=== PATIENT | male | born 1955 ===

== ENCOUNTER 2018-01-02 16:52 | Observation (INO) | payer BC ==
[2018-01-02 16:53] VITALS: BMI 31.5
[2018-01-02] MEDS ORDERED: Sodium Chloride 0.9% 1,000 ML IV ONE (17:19)
[2018-01-02] MEDS ORDERED: Aspirin 325 mg EC Tablets PO STA (17:19)
--- NOTE | 2018-01-02 17:19 | C.PDOC ---
History Of Present Illness <Noa Collins - Last Filed: 01/02/18 19:04> <Silvestre Ariza - Last Filed: 01/02/18 20:23> 62 years old male with Hx of seizure disorder and HTN presents to ED for complaints of non-radiating mid sternal chest pain associated with mild SOB that began around noon today. Patient describes symptoms as "something sitting on chest" and worsens with deep aspiration. Patient also reports he did not take any medication for his pain. Denies numbness, weakness, palpitation, dizziness, or nausea. (Noa Collins) History Per: Patient History/Exam Limitations: no limitations Onset/Duration Of Symptoms: Hrs Current Symptoms Are (Timing): Still Present Modifying Factors: None Exacerbating Factors: Deep Breathing Alleviating Factors: None Recent travel outside of the [place]: No <Noa Collins - Last Filed: 01/02/18 19:04> <Silvestre Ariza - Last Filed: 01/02/18 20:23> Time Seen by Provider: 01/02/18 17:08 Chief Complaint (Nursing): Chest Pain Past Medical History Reviewed: Historical Data, Nursing Documentation, Vital Signs - Medical History PMH: HTN, Hyperlipidemia, Seizures Denies: Chronic Kidney Disease Family History: States: Unknown Family Hx - Social History Hx Tobacco Use: No Hx Alcohol Use: Yes Hx Substance Use: No - Immunization History Hx Tetanus Toxoid Vaccination: No Hx Influenza Vaccination: No Hx Pneumococcal Vaccination: No <Noa Collins - Last Filed: 01/02/18 19:04> Vital Signs: Last Vital Signs Temp 98.2 F 01/02/18 19:22 Pulse 68 01/02/18 19:22 Resp 20 01/02/18 19:22 BP 129/85 01/02/18 19:22 Pulse Ox 96 01/02/18 19:22 Review Of Systems Constitutional: Negative for: Fever, Chills Cardiovascular: Positive for: Chest Pain (Mid sternal ). Negative for: Palpitations Respiratory: Positive for: Shortness of Breath (Mild). Negative for: Cough Gastrointestinal: Negative for: Nausea, Vomiting, Diarrhea Skin: Negative for: Rash Neurological: Negative for: Weakness, Numbness, Dizziness <Noa Collins - Last Filed: 01/02/18 19:04> Physical Exam - Physical Exam Appears: Non-toxic, No Acute Distress Skin: Warm, Dry Head: Atraumatic, Normacephalic Eye(s): bilateral: Normal Inspection Oral Mucosa: Moist Neck: Normal ROM, Supple Chest: Symmetrical, No Tenderness Cardiovascular: Rhythm Regular, No Murmur, No Other (Gallop) Respiratory: Normal Breath Sounds (Clear to auscultation bilaterally ), No Decreased Breath Sounds, No Rales, No Rhonchi, No Wheezing Gastrointestinal/Abdominal: Bowel Sounds (Active ), Soft, No Tenderness, No Distention, No Guarding, No Rebound Extremity: Normal ROM, No Tenderness, No Pedal Edema Extremity: Bilateral: Atraumatic, Normal Color And Temperature, Normal ROM Pulses: Left Dorsalis Pedis: Normal, Right Dorsalis Pedis: Normal Neurological/Psych: Oriented x3, Normal Speech, Normal Motor, Normal Sensation, Normal Reflexes, Other (No focal deficits ) Gait: Steady <Noa Collins - Last Filed: 01/02/18 19:04> ED Course And Treatment - Laboratory Results Result Diagrams: 01/02/18 17:29 01/02/18 17:29 Lab Interpretation: No Acute Changes ECG: Interpreted By Me, Viewed By Me ECG Rhythm: Sinus Rhythm ECG Interpretation: No Acute Changes, No Changes From Prior (11/12/17) Rate From EC O2 Sat by Pulse Oximetry: 98 (RA) Pulse Ox Interpretation: Normal - Radiology CXR: Interpreted by Me, Viewed By Me CXR Interpretation: Yes: No Acute Disease, Heart Size. No: Infiltrates, COPD <Noa Collins - Last Filed: 01/02/18 19:04> - Laboratory Results Result Diagrams: 01/02/18 17:29 01/02/18 17:29 <Silvestre Ariza - Last Filed: 01/02/18 20:23> Medical Decision Making <Noa Collins - Last Filed: 01/02/18 19:04> <Silvestre Ariza - Last Filed: 01/02/18 20:23> Medical Decision Making: Impression: chest pain Plan: Patient assessed and examined. EKG obtained and reviewed. 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 Orders placed for labs including CE and CXR. ASA given. Oxygen given via nasal cannula. Ordered blood work and urinalysis. Progress: EKG shows no ST elevation. CXR shows no active disease. Labs reviewed shows negative cardiac enzymes, and CBC WNL. Patient remained afebrile alert and oriented with stable vital signs. Based on clinical presentation cannot exclude ACS. Recommend obs-tele admission. Contact PMD Dr Mccoy who states he does not admit at this hospital, he is aware patient in ED. Will call medicine marine extension agent. Page medicine marine extension agent DR Hairston [phone] with no call back (Noa Collins) Disposition - Disposition Disposition Time: 19:04 - POA Present On Arrival: None <Noa Collins - Last Filed: 01/02/18 19:04> Discussed With Dr.: Estrella Hairston Comment: accepted the pt on his service and took over the care at 8:20PM Doctor Will See Patient In The: ED - POA Present On Arrival: Poor Glycemic Control <Silvestre Ariza - Last Filed: 01/02/18 20:23> - Disposition Disposition: HOSPITALIZED Condition: FAIR Instructions: Chest Pain Forms: Corso12 (Gambian) - Clinical Impression Clinical Impression: Chest pain - PA / APPLIER / Resident Statement MD/DO has reviewed & agrees with the documentation as recorded. - Scribe Statement The provider has reviewed the documentation as recorded by the Scribe <Noa Collins - Last Filed: 01/02/18 19:04> <Silvestre Ariza - Last Filed: 01/02/18 20:23> - Scribe Statement Sepideh Urbina All medical record entries made by the Scribe were at my direction and personally dictated by me. I have reviewed the chart and agree that the record accurately reflects my personal performance of the history, physical exam, medical decision making, and the department course for this patient. I have also personally directed, reviewed, and agree with the discharge instructions and disposition. (Noa Collins) Physician Patient Turnover Patient Signed Over To: Silvestre Ariza Handoff Comments: pending call back from arlette for admit obs-tele chest pain <Noa Collins - Last Filed: 01/02/18 19:04> Decision To Admit <Noa Collins - Last Filed: 01/02/18 19:04> - Pt Status Changed To: Hospital Disposition Of: Observation - . Bed Request Type: Telemetry Admitting Physician: Estrella Hairston <Silvestre Ariza - Last Filed: 01/02/18 20:23> - . Patient Diagnosis: Chest pain
[2018-01-02 17:36] LABS: BASO # 0.1 K/uL (0.0-0.2); BASO % 0.7 % (0.0-2.0); EOS # 0.1 K/uL (0.0-0.7); EOS % 0.8 % (0.0-4.0); HEMOGLOBIN 15.5 g/dL (12.0-18.0); LYMPH # 1.1 K/uL (1.0-4.3); MEAN CELL VOLUME 91.2 fL (80.0-94.0); MEAN CORPUSCULAR HEMOGLOBIN 31.8 pg (27.0-31.0); MEAN CORPUSCULAR HGB CONC 34.8 g/dL (33.0-37.0); MEAN PLATELET VOLUME 8.8 fL (7.2-11.7); MONO # 0.7 K/uL (0.0-0.8); MONO % 9.7 % (0.0-10.0); NEUT # 5.6 K/uL (1.8-7.0); NEUT % 73.8 % (50.0-75.0); RBC 4.86 Mil/uL (4.40-5.90); RED CELL DISTRIBUTION WIDTH 13.4 % (11.5-14.5); WHITE BLOOD COUNT 7.6 K/uL (4.8-10.8)
[2018-01-02 17:43] LABS: INR 1.1
[2018-01-02 17:49] LABS: ALB/GLOB RATIO 1.2 (1.0-2.1); ALBUMIN 4.4 g/dL (3.5-5.0); ALT/SGPT 91 U/L (21-72); AST/SGOT 100 U/L (17-59); BLOOD UREA NITROGEN 14 mg/dL (9-20); CALCIUM 9.5 mg/dl (8.6-10.4); GFR AFRICAN-AMERICAN > 60; GFR NON-AFRICAN AMERICAN > 60; HDL CHOLESTEROL 55 mg/dL (30-70)
[2018-01-02 17:59] LABS: B-TYPE NATRIURETIC PEPTIDE 96.4 pg/mL (0-900)
[2018-01-02 18:00] LABS: LDL CHOLESTEROL 91 mg/dL (0-129)
[2018-01-02] MEDS ORDERED: Sodium Chloride 0.9% 1,000 ML ONE (18:02)
--- NOTE | 2018-01-02 18:43 | RAD ---
HISTORY: chest pain COMPARISON: Chest x-ray performed 11/12/17 TECHNIQUE: Chest PA and lateral FINDINGS: LUNGS: No focal consolidation. Please note that chest x-ray has limited sensitivity for the detection of pulmonary masses. PLEURA: No significant pleural effusion identified. No definite pneumothorax . CARDIOVASCULAR: Heart size appears within normal limits. OSSEOUS STRUCTURES: Degenerative changes. VISUALIZED UPPER ABDOMEN: Eventration of the right hemidiaphragm. OTHER FINDINGS: Surgical clips noted at the level the right lung base/right upper quadrant. IMPRESSION: No focal consolidation, significant pleural effusion, or definite pneumothorax identified.
[2018-01-02 20:01] LABS: SQUAMOUS EPITHIAL 1 /hpf (0-5); URINE BACTERIA RARE (<OCC); URINE BILIRUBIN NEGATIVE (NEGATIVE); URINE BLOOD 1+ (NEGATIVE); URINE CLARITY Hazy (Clear); URINE COLOR Amber (YELLOW); URINE GLUCOSE (UA) NORMAL (Normal); URINE LEUKOCYTE ESTERASE NEG Leu/uL (Negative); URINE PROTEIN 2+ mg/dL (NEGATIVE)
[2018-01-02] MEDS ORDERED: Enoxaparin 40 mg Syringe SC STA (20:18)
--- NOTE | 2018-01-02 20:35 | CP.PCM.HP ---
History of Present Illness - History of Present Illness History of Present Illness: COMPREHENSIVE HISTORY & PHYSICAL EXAM HPI Patient is admitted from [facility] emergency room for atypical chest pain. Patient started experiencing retrosternal chest discomfort with no radiation diaphoresis the last 2 days his increase in intensity and severity. In the emergency room 1st set of cardiac enzymes is negative EKG shows no specific ST changes. Patient has a history of hypertension and history of seizure disorder which was admitted beginning of this year and was on Lamictal and Keppra patient also has a history of hypercholesteremia PAST HIST. Abdominal surgery in the past PERSONAL HIST: Smoking. N Alcohol. N Allergy N Travel_- . FAMILY HIST : ROS : Constitutional: Negative for weight change, chills, night sweats, fatigue and usage of assist device. Eyes: Negative for redness, swelling, itching, discharge, vision changes, blurry vision, double vision, glaucoma, cataracts, Ears: Negative for hearing loss, ringing, , tinnitus, vertigo Nose: Negative for rhinorrhea, stuffiness, sniffing, itching, postnasal drip, discoloration, nasal congestion and epistaxis. Throat: Negative for throat clearing, sore throat, hoarseness, difficulty swallowing and difficulty speaking. Respiratory: Negative for cough, chest tightness, sputum or phlegm, chronic cough, hemoptysis, wheezing, snoring at night, pleuritic chest pain and daytime somnolence. Cardiovascular: Negative for, palpitations, orthopnea, PND, Edema of legs, leg cramps, angina, claudication, , irregular heartbeat, Neurology: Negative for irritability, muscle weakness, numbness and tingling, seizures, tremors, migraines, slurred speech, syncope, memory loss, mood changes , recurrent headaches Gastrointestinal: Negative for difficulty swallowing, diarrhea, constipation, black stools, rectal bleeding, nausea, flatulence, reflux, poor appetite, changes in bowel habits, abdominal pain Genitourinary: Negative for frequent urination, hematuria, discharge, incontinence, urinary retention, frequent UTI, Psychiatric: Negative for depression, anxiety/panic, suicidal tendencies, Musculoskeletal: Negative for swollen joints, back pain, , neck pain, morning stiffness of joints, . Skin: Negative for rash, ulcers, itching, dry skin and pigmented lesions. P/E: Constitutional: Appears stated age and in no apparent distress. Head: Normocephalic. Ears: External ear canals patent without inflammation. Tympanic membranes intact with normal light reflex and landmark. Eyes: Pupils are central, bilaterally equal, symmetrical and reacts to light with normal movements and no icterus or pallor. Nose: External nares are patent. Mucosa is pink Mouth-Throat: Good general appearance and condition. No post-pharyngeal/oropharyngeal erythema and tonsillar hypertrophy. Good dental hygiene. Neck-Lymphatic: Neck is supple with normal ROM, no thyromegaly, lymph nodes or masses. JVD is normal with no carotid bruit. Lungs: Clear to percussion and auscultation with bilateral normal air entry. Cardiovascular: S1 and S2 are normal with no murmurs, gallops and rub. GI Exam: No hepatomegaly. Abdomen is soft and non-tender. No Organomegaly , masses or hernias are evident and bowel sounds are normal and active. Neurology: Higher function and all cranial nerves intact, with no gross motor or sensory deficit. Superficial and deep reflexes are normal with downwards planters. No cerebellar deficit with normal gait. Musculoskeletal: No tender spots with normal curvature of the spine with no swelling or restricted ROM of the small and large joints. Extremities: Homans sign absent. Intact pulses with no pitting edema, calf tenderness or skin color changes. Skin: No rash, eruptions or abnormal skin pigmentation LAB/RADIOLOGY: ASSESMENT : Rule out acute coronary artery disease, #2 hypertension and seizure disorder. Cardiac workup. Present on Admission - Present on Admission Any Indicators Present on Admission: No Past Patient History - Past Medical History & Family History Past Medical History?: Yes - Past Social History Smoking Status: Never Smoked - CARDIAC Hx Hypertension: Yes - PULMONARY Hx Respiratory Disorders: No - NEUROLOGICAL Hx Seizures: Yes - HEENT Hx HEENT Problems: No - RENAL Hx Chronic Kidney Disease: No - ENDOCRINE/METABOLIC Hx Endocrine Disorders: No - HEMATOLOGICAL/ONCOLOGICAL Hx Blood Disorders: No Hx Cancer: Yes (colon cancer with liver metastasis) - INTEGUMENTARY Hx Dermatological Problems: No - MUSCULOSKELETAL/RHEUMATOLOGICAL Hx Falls: Yes (hx falls due to seizures) - GASTROINTESTINAL Hx Gastrointestinal Disorders: No Hx Bowel Surgery: Yes (sigmoid colectomy) - GENITOURINARY/GYNECOLOGICAL Hx Genitourinary Disorders: No - PSYCHIATRIC Hx Substance Use: No - SURGICAL HISTORY Hx Surgeries: Yes - ANESTHESIA Hx Anesthesia: Yes Meds Allergies/Adverse Reactions: Allergies Allergy/AdvReac Type Severity Reaction Status Date / Time seafood Allergy SHORTNESS Uncoded 01/02/18 16:59 OF BREATH Results - Vital Signs Recent Vital Signs: Last Vital Signs Temp 98.2 F 01/02/18 19:22 Pulse 68 01/02/18 19:22 Resp 20 01/02/18 19:22 BP 129/85 01/02/18 19:22 Pulse Ox 96 01/02/18 19:22 - Labs Result Diagrams: 01/02/18 17:29 01/02/18 17:29 Labs: Laboratory Results - last 24 hr 01/02/18 01/02/18 01/02/18 17:29 17:29 17:29 WBC 7.6 RBC 4.86 Hgb 15.5 Hct 44.4 MCV 91.2 MCH 31.8 H MCHC 34.8 RDW 13.4 Plt Count 190 MPV 8.8 Neut % (Auto) 73.8 Lymph % (Auto) 15.0 L [place] % (Auto) 9.7 Eos % (Auto) 0.8 Baso % (Auto) 0.7 Neut # (Auto) 5.6 Lymph # (Auto) 1.1 [place] # (Auto) 0.7 Eos # (Auto) 0.1 Baso # (Auto) 0.1 PT 12.0 INR 1.1 APTT 30 Sodium 142 Potassium 3.8 Chloride 103 Carbon Dioxide 29 Anion Gap 14 BUN 14 Creatinine 0.8 Est GFR ( Amer) > 60 Est GFR (Non-Af Amer) > 60 Random Glucose 117 H Calcium 9.5 Total Bilirubin 0.8 AST 100 H D ALT 91 H D Alkaline Phosphatase 83 Total Creatine Kinase 285 H CK-MB (Mass) 2.80 Troponin I < 0.0120 NT-Pro-B Natriuret Pep 96.4 Total Protein 8.2 Albumin 4.4 Globulin 3.8 Albumin/Globulin Ratio 1.2 Triglycerides 148 Cholesterol 175 LDL Cholesterol Direct 91 HDL Cholesterol 55 Urine Color Urine Clarity Urine pH Ur Specific [place] Urine Protein Urine Glucose (UA) Urine Ketones Urine Blood Urine Nitrate Urine Bilirubin Urine Urobilinogen Ur Leukocyte Esterase Urine WBC (Auto) Urine RBC (Auto) Ur Squamous Epith Cells Ur Transition Epith Cell Urine Bacteria Hyaline Casts 01/02/18 19:47 WBC RBC Hgb Hct MCV MCH MCHC RDW Plt Count MPV Neut % (Auto) Lymph % (Auto) [place] % (Auto) Eos % (Auto) Baso % (Auto) Neut # (Auto) Lymph # (Auto) [place] # (Auto) Eos # (Auto) Baso # (Auto) PT INR APTT Sodium Potassium Chloride Carbon Dioxide Anion Gap BUN Creatinine Est GFR ( Amer) Est GFR (Non-Af Amer) Random Glucose Calcium Total Bilirubin AST ALT Alkaline Phosphatase Total Creatine Kinase CK-MB (Mass) Troponin I NT-Pro-B Natriuret Pep Total Protein Albumin Globulin Albumin/Globulin Ratio Triglycerides Cholesterol LDL Cholesterol Direct HDL Cholesterol Urine Color [place] Urine Clarity Hazy Urine pH 5.0 Ur Specific [place] 1.029 Urine Protein 2+ H Urine Glucose (UA) Normal Urine Ketones Negative Urine Blood 1+ H Urine Nitrate Negative Urine Bilirubin Negative Urine Urobilinogen 2.0 Ur Leukocyte Esterase Neg Urine WBC (Auto) 3 Urine RBC (Auto) 4 H Ur Squamous Epith Cells 1 Ur Transition Epith Cell < 1 Urine Bacteria Rare Hyaline Casts 6-10 H
[2018-01-02] MEDS ORDERED: Enoxaparin 100 mg Syringe ONE (21:07)
[2018-01-02] MEDS ORDERED: SIMVASTATIN 20 MG PO SCH (22:00)
[2018-01-03 02:35] LABS: CK-MB 2.29 ng/mL (0.0-3.38); TROPONIN I 0.015 ng/mL (0.00-0.120)
[2018-01-03 12:00] LABS: CK-MB 1.97 ng/mL (0.0-3.38); TROPONIN I 0.022 ng/mL (0.00-0.120)
--- NOTE | 2018-01-03 13:30 | CP.PCM.PN ---
Subjective - Date & Time of Evaluation Date of Evaluation: 01/03/18 Time of Evaluation: 13:30 - Subjective Subjective: CHIEF COMPLAINTS TODAY : No further chest pain. Remains in sinus bradycardia ROS. HEENT : N. Resp : No cough, wheezing ,pleuritic CP ,or hemoptysis Cardio : No anginal CP, PND, orthopnea, palpitation GI : No abd.pain, n/v ,diarrhea or GI bleeding . 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 Musculoskel : No joint swelling , Derm : No rash Psych : Normal affect. Ext : No swelling ,calf pain PE. Pt. is alert awake in no distress. V.S As noted in the chart Head ,ear nose,throat and eyes : Normal. Neck : Supple with normal carotids. Lungs: Clear air entry. Heart : S1 & S2 normal with S4. No murmur. Abd : Soft non tender with normal bowel sounds. Neuro : Moves all ext. with no localized deficit. Ext : No edema with intact pulses.Non tender calves Derm : No rashes or decubitus ulcer. LABS/RADIOLOGY: ASSESSMENT/PLAN : Cardiac workup in progress Objective - Vital Signs/Intake and Output Vital Signs (last 24 hours): Temp Pulse Resp BP Pulse Ox 97.6 F 48 L 20 157/88 H 99 01/03/18 07:00 01/03/18 12:00 01/03/18 07:00 01/03/18 07:00 01/03/18 12:14 Intake and Output: 01/03/18 01/03/18 11:59 23:59 Intake Total 10 Balance 10 - Medications Medications: Current Medications Amlodipine Besylate (Norvasc) 10 mg PO DAILY [facility] Last Admin: 01/03/18 09:23 Dose: 10 mg Aspirin (Aspirin) 325 mg PO DAILY [facility] Last Admin: 01/03/18 09:23 Dose: 325 mg Heparin Sodium (Porcine) (Heparin) 5,000 units SC BID [facility] Last Admin: 01/03/18 09:23 Dose: 5,000 units Lamotrigine (Lamictal) 150 mg PO DAILY [facility] Last Admin: 01/03/18 09:23 Dose: 150 mg Levetiracetam (Keppra) 1,500 mg PO BID [facility] Last Admin: 01/03/18 09:23 Dose: 1,500 mg Rosuvastatin Calcium (Crestor) 5 mg PO [facility] - Labs Labs: 01/02/18 17:29 01/02/18 17:29 PT 12.0 SECONDS (9.7-12.2) 01/02/18 17:29 INR 1.1 01/02/18 17:29 APTT 30 SECONDS (21-34) 01/02/18 17:29
--- NOTE | 2018-01-03 16:44 | CARD ---
APPROVED REPORT Date of service: 01/03/2018 EXAM: Two-dimensional and M-mode echocardiogram with Doppler and color Doppler. Other Information Quality : GoodRhythm : INDICATION Chest Pain RISK FACTORS Hypertension 2D DIMENSIONS IVSd1.1 (0.7-1.1cm)LVDd5.2 (3.9-5.9cm) PWd1.1 (0.7-1.1cm)LVDs3.4 (2.5-4.0cm) FS (%) 34.8 %LVEF (%)63.6 (>50%) M-Mode DIMENSIONS Left Atrium (MM)4.60 (2.5-4.0cm)IVSd1.16 (0.7-1.1cm) Aortic Root3.67 (2.2-3.7cm)LVDd5.94 (4.0-5.6cm) Aortic Cusp Exc.2.32 (1.5-2.0cm)PWd1.07 (0.7-1.1cm) FS (%) 43 %LVDs3.39 (2.0-3.8cm) LVEF (%)73 (>50%) Mitral Valve MV E Yjxpkucg85.6cm/sMV A Obqsampp50.9cm/sE/A ratio1.4 TDI E/Lateral E'0.0E/Medial E'0.0 Tricuspid Valve TR Peak [id number]/sTR Peak Gr.[id number] LEFT VENTRICLE The left ventricle is normal size. There is normal left ventricular wall thickness. The left ventricular function is normal. The left ventricular ejection fraction is within the normal range. About 55% No regional wall motion abnormalities noted. The left ventricular diastolic function is normal. No left ventricle thrombus noted on this study. There is no ventricular septal defect visualized. There is no left ventricular aneurysm. There is no mass noted in the left ventricle. RIGHT VENTRICLE The right ventricle is normal size. There is normal right ventricular wall thickness. The right ventricular systolic function is normal. ATRIA The left atrium size is normal. The right atrium size is normal. The interatrial septum is intact with no evidence for an atrial septal defect. AORTIC VALVE The aortic valve is normal in structure and function. No aortic regurgitation is present. There is no aortic valvular stenosis. There is no aortic valvular vegetation. MITRAL VALVE The mitral valve is normal in structure and function. There is no evidence of mitral valve prolapse. There is no mitral valve stenosis. There is trace mitral valve regurgitation noted. TRICUSPID VALVE The tricuspid valve is normal in structure and function. There is no tricuspid valve regurgitation noted. There is no tricuspid valve prolapse or vegetation. There is no tricuspid valve stenosis. PULMONIC VALVE The pulmonary valve is normal in structure and function. There is no pulmonic valvular regurgitation. There is no pulmonic valvular stenosis. GREAT VESSELS The aortic root is normal in size. The ascending aorta is normal in size. The pulmonary artery is normal. The IVC is normal in size and collapses >50% with inspiration. PERICARDIAL EFFUSION The pericardium appears normal. There is no pleural effusion. <Conclusion> Normal LV systolic function and wall motion. Normal Doppler.
--- NOTE | 2018-01-03 17:31 | CARD ---
APPROVED REPORT Date of service: 01/02/2018 EKG Measurement Heart [id number] VT [id number] <Conclusion> Normal sinus rhythm Voltage criteria for left ventricular hypertrophy Abnormal ECG
--- NOTE | 2018-01-04 00:17 | CARD ---
APPROVED REPORT Date of service: 01/03/2018 EKG Measurement Heart [id number] <Conclusion> Marked sinus bradycardia Voltage criteria for left ventricular hypertrophy Nonspecific ST abnormality Abnormal ECG
[2018-01-04 07:26] LABS: BASO # 0.1 K/uL (0.0-0.2); BASO % 1.1 % (0.0-2.0); EOS # 0.1 K/uL (0.0-0.7); EOS % 2.6 % (0.0-4.0); HEMOGLOBIN 15.2 g/dL (12.0-18.0); LYMPH # 1.5 K/uL (1.0-4.3); LYMPH % 27.3 % (20.0-40.0); MEAN CELL VOLUME 90.8 fL (80.0-94.0); MEAN CORPUSCULAR HEMOGLOBIN 31.4 pg (27.0-31.0); MEAN CORPUSCULAR HGB CONC 34.5 g/dL (33.0-37.0); MONO # 0.6 K/uL (0.0-0.8); MONO % 10.5 % (0.0-10.0); NEUT # 3.3 K/uL (1.8-7.0); NEUT % 58.5 % (50.0-75.0); NRBC % 0.1 % (0.0-2.0); RBC 4.86 Mil/uL (4.40-5.90); RED CELL DISTRIBUTION WIDTH 13.1 % (11.5-14.5); WHITE BLOOD COUNT 5.7 K/uL (4.8-10.8)
[2018-01-04 07:51] LABS: ALB/GLOB RATIO 1.1 (1.0-2.1); ALBUMIN 3.9 g/dL (3.5-5.0); ALT/SGPT 86 U/L (21-72); AST/SGOT 107 U/L (17-59); BLOOD UREA NITROGEN 14 mg/dL (9-20); CALCIUM 9.2 mg/dl (8.6-10.4); GFR AFRICAN-AMERICAN > 60; GFR NON-AFRICAN AMERICAN > 60
--- NOTE | 2018-01-04 14:27 | CP.PCM.PN ---
Subjective - Date & Time of Evaluation Date of Evaluation: 01/04/18 Time of Evaluation: 14:26 - Subjective Subjective: Patient is admitted from [facility] emergency room for atypical chest pain. Patient started experiencing retrosternal chest discomfort with no radiation diaphoresis the last 2 days his increase in intensity and severity. In the emergency room 1st set of cardiac enzymes is negative EKG shows no specific ST changes. Patient has a history of hypertension and history of seizure disorder which was admitted beginning of this year and was on Lamictal and Keppra patient also has a history of hypercholesteremia patient was monitored on telemetry bed. There was no any car3 sets of cardiac enzymes TNI were negative. Echocardiogram showed normal left ejection fraction with no wall motion normal. Patient currently has no chest pain on rest and on exertion. We will discharge the patient stress test outpatient. Objective - Vital Signs/Intake and Output Vital Signs (last 24 hours): Temp Pulse Resp BP Pulse Ox 97.9 F 44 L 18 163/93 H 98 01/04/18 07:00 01/04/18 07:56 01/04/18 07:00 01/04/18 07:00 01/04/18 07:00 Intake and Output: 01/04/18 01/04/18 11:59 23:59 Intake Total 200 Balance 200 - Medications Medications: Current Medications Amlodipine Besylate (Norvasc) 10 mg PO DAILY [facility] Last Admin: 01/04/18 09:30 Dose: 10 mg Aspirin (Aspirin) 325 mg PO DAILY [facility] Last Admin: 01/04/18 09:30 Dose: 325 mg Heparin Sodium (Porcine) (Heparin) 5,000 units SC BID [facility] Last Admin: 01/04/18 09:31 Dose: 5,000 units Lamotrigine (Lamictal) 150 mg PO DAILY [facility] Last Admin: 01/04/18 09:30 Dose: 150 mg Levetiracetam (Keppra) 1,500 mg PO BID [facility] Last Admin: 01/04/18 09:30 Dose: 1,500 mg Rosuvastatin Calcium (Crestor) 5 mg PO HS [facility] Last Admin: 01/03/18 21:47 Dose: 5 mg - Labs Labs: 01/04/18 07:14 01/04/18 07:14 PT 12.0 SECONDS (9.7-12.2) 01/02/18 17:29 INR 1.1 01/02/18 17:29 APTT 30 SECONDS (21-34) 01/02/18 17:29
--- NOTE | 2018-01-04 14:36 | CP.PCM.PN ---
Subjective - Date & Time of Evaluation Date of Evaluation: 01/04/18 Time of Evaluation: 14:36 - Subjective Subjective: PT CLEARED FOR D/C PER DR. TESFAYE. PT TO F/U WITH HIM IN THE OFFICE WITHIN 5-7 DAYS FOR A STRESS TEST. PT WILL ALSO F/U WITH HIS NEURO AND PMD. REFILL RX CALLED DIRECTLY TO PT'S PHARMACY. IT SHOULD BE NOTED THAT PT IS UNCLEAR WHAT MEDS HE'S ON---PT EDUCATED ON THE IMPORTANCE OF MEDICATION AWARENESS AND SELF- CARE. ADDRESSED ALL CONCERNS. NO FURTHER ORDERS. -FOLLOW UP WITH DR. TESFAYE IN THE OFFICE WITHIN 5-7 DAYS---CALL THE OFFICE FOR AN APPOINTMENT TIME. -DURING YOUR APPOINTMENT WITH DR. TESFAYE, HE WILL DISCUSS WITH YOU PLANS FOR A STRESS TEST. -CONTINUE YOUR HOME MEDICATIONS USUAL. -REFILL PRESCRIPTIONS SENT TO YOUR PHARMACY---PICK THEM UP TODAY OR TOMORROW: 1) AMLODIPINE 10 MG (FOR YOUR HEART AND BLOOD PRESSURE) ---TAKE 1 TABLET BY MOUTH ONCE A DAY 2) SIMVASTATIN 20 MG (FOR YOUR CHOLESTEROL AND HEART)---TAKE 1 TABLET BY MOUTH AT BEDSIDE 3) KEPPRA 500 MG ---TAKE 1 TABLET BY MOUTH TWICE A DAY -FOR FURTHER CONCERNS OR QUESTIONS, CONTACT DR. TESFAYE'S OFFICE. Objective - Vital Signs/Intake and Output Vital Signs (last 24 hours): Temp Pulse Resp BP Pulse Ox 97.9 F 44 L 18 163/93 H 98 01/04/18 07:00 01/04/18 07:56 01/04/18 07:00 01/04/18 07:00 01/04/18 07:00 Intake and Output: 01/04/18 01/04/18 06:59 18:59 Intake Total 200 Balance 200 - Medications Medications: Current Medications Amlodipine Besylate (Norvasc) 10 mg PO DAILY [facility] Last Admin: 01/04/18 09:30 Dose: 10 mg Aspirin (Aspirin) 325 mg PO DAILY [facility] Last Admin: 01/04/18 09:30 Dose: 325 mg Heparin Sodium (Porcine) (Heparin) 5,000 units SC BID [facility] Last Admin: 01/04/18 09:31 Dose: 5,000 units Lamotrigine (Lamictal) 150 mg PO DAILY [facility] Last Admin: 01/04/18 09:30 Dose: 150 mg Levetiracetam (Keppra) 1,500 mg PO BID [facility] Last Admin: 01/04/18 09:30 Dose: 1,500 mg Rosuvastatin Calcium (Crestor) 5 mg PO [facility] Last Admin: 01/03/18 21:47 Dose: 5 mg - Labs Labs: 01/04/18 07:14 01/04/18 07:14 PT 12.0 SECONDS (9.7-12.2) 01/02/18 17:29 INR 1.1 01/02/18 17:29 APTT 30 SECONDS (21-34) 01/02/18 17:29
[2018-01-04 15:53] VITALS: BP 172/91; PULSE 53; RESP 20; TEMP 98; O2SAT 99
== END 2018-01-04 16:42 | disposition home or self-care (01) ==
LOC: C.ER 16:52 → C.9E 20:17 → C.6T 22:28
PROVIDERS: ADMIT Internal Medicine Cardiovascular Disease; ATTEND Internal Medicine Cardiovascular Disease
DX: R07.89 Other chest pain (principal); E78.5 Hyperlipidemia, unspecified; G40.909 Epilepsy, unspecified, not intractable, without status epilepticus; I10 Essential (primary) hypertension; Z85.038 Personal history of other malignant neoplasm of large intestine; C78.7 Secondary malignant neoplasm of liver and intrahepatic bile duct
CPT/HCPCS: 36415; 71046; 80053; 80061; 81001; 83735; 83880; 84443; 84484; 85025; 85610; 85730; 93005; 93306; 94770; 96372; 99285; G0378; J1644; J1650; J7030

== ENCOUNTER 2018-01-29 17:16 | Inpatient (IN) | payer BC ==
[2018-01-29 17:23] VITALS: BMI 31.2
[2018-01-29 17:32] LABS: BASO # 0.1 K/uL (0.0-0.2); BASO % 0.9 % (0.0-2.0); EOS # 0.3 K/uL (0.0-0.7); EOS % 2.8 % (0.0-4.0); LYMPH % 35.4 % (20.0-40.0); MEAN CELL VOLUME 94.9 fL (80.0-94.0); MEAN CORPUSCULAR HEMOGLOBIN 31.2 pg (27.0-31.0); MEAN CORPUSCULAR HGB CONC 32.9 g/dL (33.0-37.0); MEAN PLATELET VOLUME 8.7 fL (7.2-11.7); MONO # 1.6 K/uL (0.0-0.8); MONO % 14.3 % (0.0-10.0); NEUT # 5.3 K/uL (1.8-7.0); NEUT % 46.6 % (50.0-75.0); NRBC % 0.1 % (0.0-2.0); RBC 5.44 Mil/uL (4.40-5.90); RED CELL DISTRIBUTION WIDTH 13.4 % (11.5-14.5); WHITE BLOOD COUNT 11.3 K/uL (4.8-10.8)
--- NOTE | 2018-01-29 17:38 | C.PDOC ---
History Of Present Illness 62 year old male, with PMHx of brain tumor resection in 2014, presents to the ED with a seizure shortly prior to arrival. As per EMS, patients family called because patient felt like he was going to have a seizure about 2 hours ago. This is the last time well. Upon arrival, patient was reportedly combative and witnessed to have a tonic-clonic seizure lasting 1 minute, in which Ativan was administered immediately. Patient became alert afterwards with no postictal period and appeared to have a leftward gaze. He was, however, responsive to questions and commands. At this point, EMS was able to move the patients right extremities but was unable to move left extremities. Patient is reportedly on Keppra due to brain tumor history, but did not take any today. Patient is not diagnosed with seizure disorder. Time Seen by Provider: 01/29/18 17:19 Chief Complaint (Nursing): Weakness/Neurological Deficit History Per: EMS History/Exam Limitations: other (HPI unobtainable due to clinical condition) Past Medical History Reviewed: Historical Data, Nursing Documentation, Vital Signs Vital Signs: Last Vital Signs Temp Pulse 90 01/29/18 18:19 Resp 18 01/29/18 18:19 BP 120/79 01/29/18 18:19 Pulse Ox 97 01/29/18 18:19 - Medical History PMH: HTN, Hypercholesterolemia, Seizures Family History: States: No Known Family Hx - Social History Hx Alcohol Use: Yes Hx Substance Use: No - Immunization History Hx Tetanus Toxoid Vaccination: No Review Of Systems Review Of Systems: ROS cannot be obtained secondary to pt's inabilty to answer questions. (due clinical condition) Physical Exam - Physical Exam Additional Physical Exam Comments: Constitutional: Sedated. Head: Normocephalic. Atraumatic. Eyes: Pinpoint pupils bilaterally. ENT: Moist mucous membranes. Neck: Supple. Cardiovascular: Tachycardic. Chest: No tenderness. Respiratory: Clear to auscultation bilaterally. GI: Healed RUQ scar. Back: No CVA tenderness. Musculoskeletal: No tenderness or swelling of extremities. Skin: No rash. Neurologic: Sedated. Not alert. ED Course And Treatment - Laboratory Results Result Diagrams: 01/29/18 17:26 01/29/18 17:26 ECG: Interpreted By Me, Viewed By Me Interpretation Of ECG: Normal sinus rhythym. No ST elevation. Rate From EC O2 Sat by Pulse Oximetry: 97 (RA) Pulse Ox Interpretation: Normal - CT Scan/US CT Head Other Rad Studies (CT/US): Read By Radiologist, Radiology Report Reviewed CT/US Interpretation: FINDINGS: HEMORRHAGE: No intracranial hemorrhage. BRAIN : No mass effect or edema. Mild atrophy. Chronic microvascular ischemic changes. Right parieto-occipital region encephalomalacia subjacent to craniotomy. VENTRICLES: Unremarkable. No hydrocephalus. CALVARIUM: Right parieto-occipital craniotomy. PARANASAL SINUSES: Bifrontal and left maxillary sinus mucosal thickening. MASTOID AIR CELLS: Unremarkable as visualized. No inflammatory changes. OTHER FINDINGS: None. IMPRESSION: No acute intracranial pathology. Right parietal occipital region encephalomalacia subjacent to prior craniotomy. Please note, there is limited assessment in the absence of intravenous contrast. Contrast-enhanced MRI would better evaluate for residual tumor in this region. NIHSS Stroke Scale 2 - Date/Time Evaluation Performed Date Performed: 01/29/18 Time Performed: 17:53 When Was NIHSS Performed: Baseline - How Severe is the Stroke Level of Consciousness: 0=Alert LOC to Questions: 0=Both comments correct LOC to commands: 0=Obeys both correctly Best Gaze: 0=Normal Visual: 0=No visual loss Facial: 0=Normal Motor Arm - Left: 0=No drift Motor Arm - Right: 0=No drift Motor Leg - Left: 0=No drift Motor Leg - Right: 0=No drift Limb Ataxia: 0=Absent Sensory: 0=Normal Best Language: 0=No aphasia Dysarthia: 0=Normal articulation Extinction & Inattention (Neglect): 0=Normal, no object Score: 0 Severity Of Stroke: 0 = No Stroke rTPA Inclusion/Exclusion - Refusal of Treatment Patient Refused Treatment: No - Inclusion Criteria for Altepase Patient is 18 years or Older: Yes The Clinical Diagnosis of Ischemic Stroke That is Causing a Potentially Disabling Neurological Deficit: No Time of Onset is Well Established to be Less Than 270 Minute Before Treatment Would Begin: Yes Risk/Benefit Discussed With Patient/Family Member Present: Yes - Exclusion Criteria for Altepase History of: Brain Tumor - Warning to TPA With Conditions Condition: Seizure at Onset of Stroke Medical Decision Making Medical Decision Making: Impression: Seizure Plan: -Labs -CT Head -CTA Head/Neck -EKG -Chest X-Ray -Urinalysis Critical care time: 60 minutes. Required by immediate attention upon arrival due to life threatening condition and complex decision making. 6:00pm - Patient returned from CT scan and was more alert; however, still drowsy. He was able to answer questions and follow commands, and moves bilateral extremities spontaneously. No obvious facial droop. Pupils reactive. Sister at bedside states patient has had multiple seizures since brain tumor resection and patient typically takes Keppra every day, but ran out 2 days ago. She also states patient is a daily beer drinker approximately drinking 12 8oz cans per day. Chest X-Ray showed no acute disease. Dr. Rodriguez accepts patient to medical service, will hand off to incoming hospitalist team. Dr. Parham accepts consult, recommends Keppra 1500mg loading dose and 500mg Q12H. Aspirin not administered as patient is having likely seizure disorder at this time, not CVA. Disposition Discussed With .: Dionicio Parham Doctor Will See Patient In The: Hospital - Disposition Disposition: HOSPITALIZED Disposition Time: 18:52 Condition: GUARDED Forms: [facility] (Gabonese) - Clinical Impression Clinical Impression: Seizure - Scribe Statement The provider has reviewed the documentation as recorded by the Roel Gastelum Provider Attestation: All medical record entries made by the Onelibdeirdre were at my direction and personally dictated by me. I have reviewed the chart and agree that the record accurately reflects my personal performance of the history, physical exam, medical decision making, and the department course for this patient. I have also personally directed, reviewed, and agree with the discharge instructions and disposition.
--- NOTE | 2018-01-29 17:38 | CT ---
Date of service: 01/29/2018 PROCEDURE: CT HEAD WITHOUT CONTRAST. HISTORY: seizure, L sided weakness, h/o tumor resection COMPARISON: None available. TECHNIQUE: Axial computed tomography images were obtained through the head/brain without intravenous contrast. Radiation dose: Total exam DLP = 1025.4 mGy-cm. This CT exam was performed using one or more of the following dose reduction techniques: Automated exposure control, adjustment of the mA and/or kV according to patient size, and/or use of iterative reconstruction technique. FINDINGS: HEMORRHAGE: No intracranial hemorrhage. BRAIN: No mass effect or edema. Mild atrophy. Chronic microvascular ischemic changes. Right parieto-occipital region encephalomalacia subjacent to craniotomy. VENTRICLES: Unremarkable. No hydrocephalus. CALVARIUM: Right parieto-occipital craniotomy. PARANASAL SINUSES: Bifrontal and left maxillary sinus mucosal thickening. MASTOID AIR CELLS: Unremarkable as visualized. No inflammatory changes. OTHER FINDINGS: None. IMPRESSION: No acute intracranial pathology. Right parietal occipital region encephalomalacia subjacent to prior craniotomy. Please note, there is limited assessment in the absence of intravenous contrast. Contrast-enhanced MRI would better evaluate for residual tumor in this region. Findings conveyed to Dr. Posey by Dr. Levine at 5:32 p.m. on 01/29/2018.
[2018-01-29 17:40] LABS: PROTHROMBIN TIME 11.2 SECONDS (9.7-12.2)
[2018-01-29 17:45] LABS: ALB/GLOB RATIO 1.2 (1.0-2.1); ALBUMIN 5.3 g/dL (3.5-5.0); ALT/SGPT 179 U/L (21-72); AST/SGOT 161 U/L (17-59); BLOOD UREA NITROGEN 9 mg/dL (9-20); CALCIUM 10.8 mg/dl (8.6-10.4); GFR NON-AFRICAN AMERICAN > 60; HDL CHOLESTEROL 71 mg/dL (30-70)
[2018-01-29 17:55] LABS: LDL CHOLESTEROL 118 mg/dL (0-129)
[2018-01-29 18:23] LABS: URINE AMORPHOUS SEDIMENT MODERATE /ul (<OCC); URINE BACTERIA RARE (<OCC); URINE BILIRUBIN NEGATIVE (NEGATIVE); URINE BLOOD 2+ (NEGATIVE); URINE CLARITY Clear (Clear); URINE COLOR Yellow (YELLOW); URINE GLUCOSE (UA) NORMAL (Normal); URINE LEUKOCYTE ESTERASE NEG Leu/uL (Negative); URINE PROTEIN 2+ mg/dL (NEGATIVE); URINE UROBILINOGEN NORMAL mg/dL (0.2-1.0)
[2018-01-29] MEDS ORDERED: levETIRAcetam 1,500 MG in Sodium Chloride 0.9% 100 ML IVPB STA (18:33)
[2018-01-29 18:36] LABS: BARBITURATES, UR NEGATIVE (NEGATIVE); BENZODIAZEPINES, UR NEGATIVE (NEGATIVE); PHENCYCLIDINE, UR NEGATIVE (NEGATIVE)
[2018-01-29 18:37] LABS: OPIATES, UR POSITIVE (NEGATIVE)
--- NOTE | 2018-01-29 20:06 | CP.PCM.HP ---
Addendum entered and electronically signed by Nayeli Vargas DO 01/30/18 05:51: Patient is now AAO x3 and offering more information. PMHx: Colon CA (remission s/p resection and chemotherapy), Benign brain tumor status post resection PSHx: Brain Tumor Resection, Colectomy, Meds: Norvasc 10mg Daily, Simvastatin 20mg HS, Keppra 500mg BID, Lamictal ( Unspecified dose), Omeprazole 40mg Daily. PMD: Dr. Allan Mccoy. Patient entered under incorrect M.R #. Please see for history. Original Note: <Nayeli Vargas - Last Filed: 01/30/18 00:15> History of Present Illness - History of Present Illness History of Present Illness: Mr. Spears is a 62 year old male with a past medical history of brain tumor (s/p brain tumor resection in 2014) who presents to the ED with complaints of a seizure episode prior to coming to the hospital. Patient states he was aware that the seizure was about the occur because he began to feel dizzy. Patient had 1 episode of a tonic-clonic seizure in the ED lasting about 1 minute and treated with Ativan per E.D note. A loading dose of Keppra was given in the E.D due to history of brain tumor s/p resection. Patient denies any fever, chills, urinary/bowel incontinence, tongue biting, vision changes, chest pain, shortness of breath, abdominal pain, vomiting, changes in bowel habits, or urinary symptoms. Patient does admit to headache, diffuse body aches, and nausea. Of note, patient's history and review of systems may be unreliable due to patient's lethargy and lack of alertness. More detailed history and review of systems unobtainable due to patient's lethargy. ROS: As stated above PMHx: Brain Tumor PSHx: Brain Tumor Resection Allergies: NKDA SocialHx: Denies tobacco use, drinks about 6-7 24oz beers daily, Denies Illicit drug use FamHx: Non-Cont. Meds: Patient states he cannot remember the names of his medications. He does remember that he takes Keppra. Present on Admission - Present on Admission Any Indicators Present on Admission: No Review of Systems - Review of Systems All systems: reviewed and no additional remarkable complaints except (As per HPI ) Review of Systems: As per HPI Past Patient History - Past Social History Smoking Status: Never Smoked - CARDIAC Hx Hypercholesterolemia: Yes Hx Hypertension: Yes - NEUROLOGICAL Hx Seizures: Yes - HEMATOLOGICAL/ONCOLOGICAL Hx Blood Disorders: Yes Hx Cancer: Yes - GASTROINTESTINAL Hx Gastrointestinal Disorders: Yes Hx Bowel Surgery: Yes (COLON) - PSYCHIATRIC Hx Substance Use: No - SURGICAL HISTORY Hx Surgeries: Yes Other/Comment: COLON SX, BRAIN TUMOR EXCISION Meds Allergies/Adverse Reactions: Allergies Allergy/AdvReac Type Severity Reaction Status Date / Time No Known Allergies Allergy Verified 01/29/18 17:27 Physical Exam - Constitutional Appears: Non-toxic, No Acute Distress Additional comments: lethargy - Head Exam Head Exam: ATRAUMATIC, NORMAL INSPECTION, NORMOCEPHALIC - Eye Exam Eye Exam: EOMI, PERRL. absent: Scleral icterus Pupil Exam: absent: Miosis, Mydriatic - ENT Exam ENT Exam: Mucous Membranes Moist - Neck Exam Neck exam: Positive for: Normal Inspection - Respiratory Exam Respiratory Exam: Clear to Auscultation Bilateral, NORMAL BREATHING PATTERN - Cardiovascular Exam Cardiovascular Exam: RRR, +S1, +S2 - GI/Abdominal Exam GI & Abdominal Exam: Normal Bowel Sounds, Soft. absent: Tenderness - Extremities Exam Extremities exam: Positive for: normal capillary refill, normal inspection. Negative for: pedal edema - Neurological Exam Neurological exam: Alert, Oriented x3 Results - Vital Signs Recent Vital Signs: Last Vital Signs Temp Pulse 90 01/29/18 18:19 Resp 18 01/29/18 18:19 BP 120/79 01/29/18 18:19 Pulse Ox 97 01/29/18 18:57 - Labs Result Diagrams: 01/29/18 17:26 01/29/18 17:26 Labs: Laboratory Results - last 24 hr 01/29/18 01/29/18 01/29/18 17:26 17:26 17:26 WBC 11.3 H RBC 5.44 Hgb 17.0 Hct 51.6 H MCV 94.9 H MCH 31.2 H MCHC 32.9 L RDW 13.4 Plt Count 255 MPV 8.7 Neut % (Auto) 46.6 L Lymph % (Auto) 35.4 Grimes % (Auto) 14.3 H Eos % (Auto) 2.8 Baso % (Auto) 0.9 Neut # (Auto) 5.3 Lymph # (Auto) 4.0 Grimes # (Auto) 1.6 H Eos # (Auto) 0.3 Baso # (Auto) 0.1 PT 11.2 INR 1.0 APTT 30 Sodium 152 H Potassium 4.5 Chloride 106 Carbon Dioxide 13 L Anion Gap 37 H BUN 9 Creatinine 1.1 Est GFR ( Amer) > 60 Est GFR (Non-Af Amer) > 60 Random Glucose 160 H Calcium 10.8 H Total Bilirubin 0.6 AST 161 H ALT 179 H Alkaline Phosphatase 86 Troponin I < 0.0120 Total Protein 9.7 H Albumin 5.3 H Globulin 4.3 H Albumin/Globulin Ratio 1.2 Triglycerides 235 H Cholesterol 237 H LDL Cholesterol Direct 118 HDL Cholesterol 71 H Urine Color Urine Clarity Urine pH Ur Specific Jenison Urine Protein Urine Glucose (UA) Urine Ketones Urine Blood Urine Nitrate Urine Bilirubin Urine Urobilinogen Ur Leukocyte Esterase Urine WBC (Auto) Urine RBC (Auto) Amorphous Sediment Urine Bacteria Hyaline Casts Urine Opiates Screen Urine Methadone Screen Ur Barbiturates Screen Ur Phencyclidine Scrn Ur Amphetamines Screen U Benzodiazepines Scrn U Oth Cocaine Metabols U Cannabinoids Screen Alcohol, Quantitative 14 H Blood Type Antibody Screen 01/29/18 01/29/18 01/29/18 17:26 18:14 18:14 WBC RBC Hgb Hct MCV MCH MCHC RDW Plt Count MPV Neut % (Auto) Lymph % (Auto) Grimes % (Auto) Eos % (Auto) Baso % (Auto) Neut # (Auto) Lymph # (Auto) Grimes # (Auto) Eos # (Auto) Baso # (Auto) PT INR APTT Sodium Potassium Chloride Carbon Dioxide Anion Gap BUN Creatinine Est GFR ( Amer) Est GFR (Non-Af Amer) Random Glucose Calcium Total Bilirubin AST ALT Alkaline Phosphatase Troponin I Total Protein Albumin Globulin Albumin/Globulin Ratio Triglycerides Cholesterol LDL Cholesterol Direct HDL Cholesterol Urine Color Yellow Urine Clarity Clear Urine pH 5.0 Ur Specific Jenison 1.017 Urine Protein 2+ H Urine Glucose (UA) Normal Urine Ketones Negative Urine Blood 2+ H Urine Nitrate Negative Urine Bilirubin Negative Urine Urobilinogen Normal Ur Leukocyte Esterase Neg Urine WBC (Auto) 1 Urine RBC (Auto) 12 H Amorphous Sediment Moderate H Urine Bacteria Rare Hyaline Casts 6-10 H Urine Opiates Screen Positive H Urine Methadone Screen Negative Ur Barbiturates Screen Negative Ur Phencyclidine Scrn Negative Ur Amphetamines Screen Negative U Benzodiazepines Scrn Negative U Oth Cocaine Metabols Negative U Cannabinoids Screen Negative Alcohol, Quantitative Blood Type A POSITIVE Antibody Screen Negative Assessment & Plan - Assessment and Plan (Free Text) Assessment: Mr. Spears is a 62 year old male with a past medical history of brain tumor (s/p brain tumor resection in 2015) who presents to the ED with complaints of a seizure episode prior to coming to the hospital. Patient admitted for evaluation and treatment of seizure. Plan: Seizure 2/2 of Hx of Brain Tumor Resection vs Alcohol Withdrawal. CT Head (Adm): No acute intracranial pathology. Right parietal occipital region encephalomalacia subjacent to prior craniotomy. Please note, there is limited assessment in the absence of intravenous contrast. Contrast-enhanced MRI would better evaluate for residual tumor in this region. CTA Head/Neck (Adm): No Acute pathology EKG ED Course: Ativan during seizure, Keppra 1500mg Keppra 500mg Q12H IV Neurology Consult (Dr. Parham) Seizure Precautions. Neurochecks, HOB elevated to 45 Degrees, Swallow Eval [facility]WA Protocol EtoH Abuse/Withdrawal Alcohol Lvl 14, UDS Positive for Opiates. CIWA protocol Banana Bag Ativan 2mg Q4H REBECCA/ 2mg Q2H PRN Hypernatremia 1/2 NS @ 100mls/hr post Banana Bag Monitor BMP High Anion Gap Metabolic Acidosis Likely 2/2 to EtOH ABG Hx of HTN/HLD Patient forgot names of medication, he states he has a list in a suitcase he left at home. Verify Meds in AM Proph Heparin, Protonix, Regular Diet Dispo: Patient needs medication reconciliation. Medication list needs to be brought in or pharmacy needs to be called. Patient discussed with Attending Nayeli Vargas, PGY-2 <Wilver Rogers - Last Filed: 01/30/18 06:40> Results - Vital Signs Recent Vital Signs: Last Vital Signs Temp 98 F 01/30/18 04:00 Pulse 51 L 01/30/18 04:00 Resp 18 01/30/18 04:00 BP 138/60 01/30/18 04:00 Pulse Ox 95 01/30/18 04:00 - Labs Result Diagrams: 01/30/18 06:07 01/29/18 17:26 Labs: Laboratory Results - last 24 hr 01/29/18 01/29/18 01/29/18 17:26 17:26 17:26 WBC 11.3 H RBC 5.44 Hgb 17.0 Hct 51.6 H MCV 94.9 H MCH 31.2 H MCHC 32.9 L RDW 13.4 Plt Count 255 MPV 8.7 Neut % (Auto) 46.6 L Lymph % (Auto) 35.4 Grimes % (Auto) 14.3 H Eos % (Auto) 2.8 Baso % (Auto) 0.9 Neut # (Auto) 5.3 Lymph # (Auto) 4.0 Grimes # (Auto) 1.6 H Eos # (Auto) 0.3 Baso # (Auto) 0.1 PT 11.2 INR 1.0 APTT 30 Puncture Site pCO2 pO2 HCO3 ABG pH ABG Total CO2 ABG O2 Saturation ABG Base Excess Hans Test ABG Potassium A-a O2 Difference Respiratory Index Glucose Lactate Liter Flow FiO2 Sodium 152 H Potassium 4.5 Chloride 106 Carbon Dioxide 13 L Anion Gap 37 H BUN 9 Creatinine 1.1 Est GFR ( Amer) > 60 Est GFR (Non-Af Amer) > 60 Random Glucose 160 H Hemoglobin A1c Calcium 10.8 H Magnesium Total Bilirubin 0.6 AST 161 H ALT 179 H Alkaline Phosphatase 86 Troponin I < 0.0120 Total Protein 9.7 H Albumin 5.3 H Globulin 4.3 H Albumin/Globulin Ratio 1.2 Triglycerides 235 H Cholesterol 237 H LDL Cholesterol Direct 118 HDL Cholesterol 71 H Arterial Blood Potassium Urine Color Urine Clarity Urine pH Ur Specific Jenison Urine Protein Urine Glucose (UA) Urine Ketones Urine Blood Urine Nitrate Urine Bilirubin Urine Urobilinogen Ur Leukocyte Esterase Urine WBC (Auto) Urine RBC (Auto) Amorphous Sediment Urine Bacteria Hyaline Casts Urine Opiates Screen Urine Methadone Screen Ur Barbiturates Screen Ur Phencyclidine Scrn Ur Amphetamines Screen U Benzodiazepines Scrn U Oth Cocaine Metabols U Cannabinoids Screen Alcohol, Quantitative 14 H Blood Type Antibody Screen 01/29/18 01/29/18 01/29/18 17:26 17:26 17:26 WBC RBC Hgb Hct MCV MCH MCHC RDW Plt Count MPV Neut % (Auto) Lymph % (Auto) Grimes % (Auto) Eos % (Auto) Baso % (Auto) Neut # (Auto) Lymph # (Auto) Grimes # (Auto) Eos # (Auto) Baso # (Auto) PT INR APTT Puncture Site pCO2 pO2 HCO3 ABG pH ABG Total CO2 ABG O2 Saturation ABG Base Excess Hans Test ABG Potassium A-a O2 Difference Respiratory Index Glucose Lactate Liter Flow FiO2 Sodium Potassium Chloride Carbon Dioxide Anion Gap BUN Creatinine Est GFR ( Amer) Est GFR (Non-Af Amer) Random Glucose Hemoglobin A1c 5.8 Calcium Magnesium 2.4 H Total Bilirubin AST ALT Alkaline Phosphatase Troponin I Total Protein Albumin Globulin Albumin/Globulin Ratio Triglycerides Cholesterol LDL Cholesterol Direct HDL Cholesterol Arterial Blood Potassium Urine Color Urine Clarity Urine pH Ur Specific Jenison Urine Protein Urine Glucose (UA) Urine Ketones Urine Blood Urine Nitrate Urine Bilirubin Urine Urobilinogen Ur Leukocyte Esterase Urine WBC (Auto) Urine RBC (Auto) Amorphous Sediment Urine Bacteria Hyaline Casts Urine Opiates Screen Urine Methadone Screen Ur Barbiturates Screen Ur Phencyclidine Scrn Ur Amphetamines Screen U Benzodiazepines Scrn U Oth Cocaine Metabols U Cannabinoids Screen Alcohol, Quantitative Blood Type A POSITIVE Antibody Screen Negative 01/29/18 01/29/1818 18:14 18:14 00:31 WBC RBC Hgb Hct MCV MCH MCHC RDW Plt Count MPV Neut % (Auto) Lymph % (Auto) Grimes % (Auto) Eos % (Auto) Baso % (Auto) Neut # (Auto) Lymph # (Auto) Grimes # (Auto) Eos # (Auto) Baso # (Auto) PT INR APTT Puncture Site Lr pCO2 41 pO2 81 HCO3 25.8 ABG pH 7.41 ABG Total CO2 27.3 ABG O2 Saturation 97.3 ABG Base Excess 1.2 Hans Test Pos ABG Potassium 4.1 A-a O2 Difference 17.0 Respiratory Index 0.2 Glucose 107 Lactate 1.7 Liter Flow 0 FiO2 21.0 Sodium 138.0 Potassium Chloride 105.0 Carbon Dioxide Anion Gap BUN Creatinine Est GFR ( Amer) Est GFR (Non-Af Amer) Random Glucose Hemoglobin A1c Calcium Magnesium Total Bilirubin AST ALT Alkaline Phosphatase Troponin I Total Protein Albumin Globulin Albumin/Globulin Ratio Triglycerides Cholesterol LDL Cholesterol Direct HDL Cholesterol Arterial Blood Potassium 4.1 Urine Color Yellow Urine Clarity Clear Urine pH 5.0 Ur Specific Jenison 1.017 Urine Protein 2+ H Urine Glucose (UA) Normal Urine Ketones Negative Urine Blood 2+ H Urine Nitrate Negative Urine Bilirubin Negative Urine Urobilinogen Normal Ur Leukocyte Esterase Neg Urine WBC (Auto) 1 Urine RBC (Auto) 12 H Amorphous Sediment Moderate H Urine Bacteria Rare Hyaline Casts 6-10 H Urine Opiates Screen Positive H Urine Methadone Screen Negative Ur Barbiturates Screen Negative Ur Phencyclidine Scrn Negative Ur Amphetamines Screen Negative U Benzodiazepines Scrn Negative U Oth Cocaine Metabols Negative U Cannabinoids Screen Negative Alcohol, Quantitative Blood Type Antibody Screen 01/30/18 01/30/18 06:07 06:07 WBC 9.0 RBC 4.76 Hgb 14.9 D Hct 43.5 MCV 91.4 D MCH 31.4 H MCHC 34.3 RDW 13.0 Plt Count 173 MPV 9.1 Neut % (Auto) 75.7 H Lymph % (Auto) 13.7 L Grimes % (Auto) 10.1 H Eos % (Auto) 0.1 Baso % (Auto) 0.4 Neut # (Auto) 6.8 Lymph # (Auto) 1.2 Grimes # (Auto) 0.9 H Eos # (Auto) 0.0 Baso # (Auto) 0.0 PT INR APTT 27 Puncture Site pCO2 pO2 HCO3 ABG pH ABG Total CO2 ABG O2 Saturation ABG Base Excess Hans Test ABG Potassium A-a O2 Difference Respiratory Index Glucose Lactate Liter Flow FiO2 Sodium Potassium Chloride Carbon Dioxide Anion Gap BUN Creatinine Est GFR ( Amer) Est GFR (Non-Af Amer) Random Glucose Hemoglobin A1c Calcium Magnesium Total Bilirubin AST ALT Alkaline Phosphatase Troponin I Total Protein Albumin Globulin Albumin/Globulin Ratio Triglycerides Cholesterol LDL Cholesterol Direct HDL Cholesterol Arterial Blood Potassium Urine Color Urine Clarity Urine pH Ur Specific Jenison Urine Protein Urine Glucose (UA) Urine Ketones Urine Blood Urine Nitrate Urine Bilirubin Urine Urobilinogen Ur Leukocyte Esterase Urine WBC (Auto) Urine RBC (Auto) Amorphous Sediment Urine Bacteria Hyaline Casts Urine Opiates Screen Urine Methadone Screen Ur Barbiturates Screen Ur Phencyclidine Scrn Ur Amphetamines Screen U Benzodiazepines Scrn U Oth Cocaine Metabols U Cannabinoids Screen Alcohol, Quantitative Blood Type Antibody Screen Assessment & Plan - Date & Time Date: 01/30/18 (I have seen and examined the patient. I agree with the findings and plan of care as documented by Dr. Vargas. Patient with acute seizure activity. [place] IV. Alcohol abuse. [facility] protocol. Consult to neuro. Seizure precautions. Hypertremia. 1/2 NS IVF. Recheck in AM. If hypernatremia persists, check urine electrolytes and serum/urine osmolalities. Monitor for acute changes.) Time: 06:37 Attending/Attestation - Attestation I have personally seen and examined this patient.: Yes I have fully participated in the care of the patient.: Yes I have reviewed all pertinent clinical information: Yes
[2018-01-29] MEDS ORDERED: Multivitamin (MVI) 10 ML, Thiamine 100 MG, Folic Acid 1 MG in Sodium Chloride 0.9% 1,00... IV ONE (20:08)
[2018-01-30 01:54] LABS: ABG ALLEN TEST POS; ARTERIAL BLOOD GAS HCO3 25.8 mmol/L (21-28); ARTERIAL BLOOD GAS O2 SAT 97.3 % (95-98); ARTERIAL BLOOD GAS PCO2 41 mm/Hg (35-45); ARTERIAL BLOOD GAS PH 7.41 (7.35-7.45); ARTERIAL BLOOD GAS PO2 81 mm/Hg (80-100); ARTERIAL BLOOD GAS TCO2 27.3 mmol/L (22-28)
[2018-01-30] MEDS ORDERED: Sodium Chloride 0.9% 1,000 ML IV SCH (04:30)
[2018-01-30] MEDS: Sodium Chloride 0.45% 1,000 ML IV SCH ×2 (05:23→15:42)
[2018-01-30 06:20] LABS: BASO % 0.4 % (0.0-2.0); EOS % 0.1 % (0.0-4.0); HEMOGLOBIN 14.9 g/dL (12.0-18.0); LYMPH # 1.2 K/uL (1.0-4.3); LYMPH % 13.7 % (20.0-40.0); MEAN CELL VOLUME 91.4 fL (80.0-94.0); MEAN CORPUSCULAR HEMOGLOBIN 31.4 pg (27.0-31.0); MEAN CORPUSCULAR HGB CONC 34.3 g/dL (33.0-37.0); MEAN PLATELET VOLUME 9.1 fL (7.2-11.7); MONO # 0.9 K/uL (0.0-0.8); MONO % 10.1 % (0.0-10.0); NEUT # 6.8 K/uL (1.8-7.0); NEUT % 75.7 % (50.0-75.0); RBC 4.76 Mil/uL (4.40-5.90)
[2018-01-30 06:45] LABS: ALB/GLOB RATIO 1.2 (1.0-2.1); ALBUMIN 4.2 g/dL (3.5-5.0); ALT/SGPT 143 U/L (21-72); AST/SGOT 98 U/L (17-59); BLOOD UREA NITROGEN 14 mg/dL (9-20); CALCIUM 9.2 mg/dl (8.6-10.4); GFR NON-AFRICAN AMERICAN > 60
[2018-01-30] MEDS: Pantoprazole 40 mg EC Tab PO SCH (09:33)
--- NOTE | 2018-01-30 09:40 | RAD ---
Chest x-ray single frontal view History: Code stroke. Comparison: None available. Findings: Moderate venous congestion. Patchy increased markings at the left lung base with small left pleural effusion. Right hilar prominence. Cardiomegaly. Surgical clips in the right upper abdomen. Degenerative changes in the spine and shoulders. Impression: Moderate venous congestion. Patchy increased markings at the left lung base with small left pleural effusion. Right hilar prominence. Cardiomegaly. Surgical clips in the right upper abdomen.
--- NOTE | 2018-01-30 11:25 | CP.PCM.CON ---
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 Patient stated he ran out of his anti-epileptic seizure medication and last took his AEDs tuesday morning (his seizure occurred tuesday afternoon). In addition, he's been drinking heavily in the past few days with his last drink on tuesday night. He drinks 6 tall boys of beer daily. He follow-up with Neurologist Dr Way however hasn't seen in "in a long while". Tuesday he began to have dizziness and called family members telling them he feels as if he's about to have a seizure. EMS arrived and witnessed a 1 minute tonic-clonic seizure, ativan was given which resolved the seizure activity. He was given keppra 1500mg loading dose in the ED and is now on keppra 500mg po q12h and has been seizure free since admission. 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), seizure disorder ( on Keppra and Lamictal), colon CA (remission s/p resection and chemotherapy) PSHx: Brain Tumor Resection (benign), Colectomy, hepatectomy for liver mets Allergies: seafood - rash Home Meds (confirmed with [facility] in [place]): keppra 1500mg po bid, lamictal 100mg in am and 300mg in pm, lisinopril 10mg po qd, imdur 30mg po qd, simvastatin 20mg po hs, omeprazole 40mg po qd FamHx: denied SocialHx: drinks about 6-7 24oz beers daily, denies Illicit drug use, denies tobacco use Review of Systems - Constitutional Constitutional: absent: Chills, Fever - EENT Eyes: absent: Blurred Vision - Cardiovascular Cardiovascular: absent: Chest Pain - Respiratory Respiratory: absent: Cough - Gastrointestinal Gastrointestinal: absent: Abdominal Pain, Diarrhea - Genitourinary Genitourinary: absent: Dysuria - Musculoskeletal Musculoskeletal: absent: Abnormal Gait - Neurological Neurological: absent: Dizziness, Numbness, Focal Weakness, Headaches Past Patient History - Past Medical History & Family History Past Medical History?: Yes - Past Social History Smoking Status: Former Smoker - CARDIAC Hx Hypercholesterolemia: Yes Hx Hypertension: Yes - PULMONARY Hx Respiratory Disorders: No - NEUROLOGICAL Hx Seizures: Yes - HEENT Hx HEENT Problems: No - RENAL Hx Chronic Kidney Disease: No - ENDOCRINE/METABOLIC Hx Endocrine Disorders: No - HEMATOLOGICAL/ONCOLOGICAL Hx Blood Disorders: Yes Hx Cancer: Yes (brain tumor) - INTEGUMENTARY Hx Dermatological Problems: No - MUSCULOSKELETAL/RHEUMATOLOGICAL Hx Falls: Yes - GASTROINTESTINAL Hx Gastrointestinal Disorders: Yes Hx Bowel Surgery: Yes (COLON) - GENITOURINARY/GYNECOLOGICAL Hx Genitourinary Disorders: No - PSYCHIATRIC Hx Substance Use: Yes - SURGICAL HISTORY Hx Surgeries: Yes Other/Comment: COLON SX, BRAIN TUMOR EXCISION - ANESTHESIA Hx Anesthesia: Yes Hx Anesthesia Reactions: No Hx Malignant Hyperthermia: No Has any member of the family had a problem w/ anesthesia?: No Meds Allergies/Adverse Reactions: Allergies Allergy/AdvReac Type Severity Reaction Status Date / Time seafood Allergy SHORTNESS Uncoded 01/02/18 16:59 OF BREATH - Medications Medications: Current Medications Amlodipine Besylate (Norvasc) 10 mg PO DAILY REPLACED BY [facility] Last Admin: 01/30/18 09:33 Dose: 10 mg Heparin Sodium (Porcine) (Heparin) 5,000 units SC Q8 REPLACED BY [facility] Last Admin: 01/30/18 09:33 Dose: 5,000 units Levetiracetam 500 mg/ Dextrose 105 mls @ 420 mls/hr IVPB Q12H REPLACED BY [facility] Last Admin: 01/30/18 06:10 Dose: 420 mls/hr Sodium Chloride (Sodium Chloride 0.45%) 1,000 mls @ 100 mls/hr IV .Q10H REPLACED BY [facility] Last Admin: 01/30/18 05:23 Dose: 100 mls/hr Ibuprofen (Motrin Tab) 600 mg PO TID PRN PRN Reason: Pain, Mild - Severe (1-10) Last Admin: 01/30/18 01:40 Dose: 600 mg Lamotrigine (Lamictal) 200 mg PO BID REPLACED BY [facility] Lisinopril (Zestril) 10 mg PO DAILY REPLACED BY [facility] Last Admin: 01/30/18 11:03 Dose: 10 mg Lorazepam (Ativan) 2 mg IVP Q4H REPLACED BY [facility] Last Admin: 01/30/18 09:34 Dose: Not Given Lorazepam (Ativan) 2 mg IVP Q2H PRN PRN Reason: Symptoms of alcohol withdrawl Ondansetron HCl (Zofran Inj) 4 mg IVP Q6H PRN PRN Reason: Nausea/Vomiting Last Admin: 01/29/18 20:53 Dose: 4 mg Pantoprazole Sodium (Protonix Ec Tab) 40 mg PO DAILY REPLACED BY [facility] Last Admin: 01/30/18 09:33 Dose: 40 mg Rosuvastatin Calcium (Crestor) 5 mg PO [facility] Physical Exam - Constitutional Appears: Well, No Acute Distress - Head Exam Head Exam: ATRAUMATIC, NORMAL INSPECTION - Eye Exam Eye Exam: EOMI, PERRL. absent: Nystagmus - ENT Exam ENT Exam: Mucous Membranes Moist - Neck Exam Neck exam: Positive for: Normal Inspection - Respiratory Exam Respiratory Exam: Clear to Auscultation Bilateral, NORMAL BREATHING PATTERN. absent: Rales, Rhonchi, Wheezes - Cardiovascular Exam Cardiovascular Exam: REGULAR RHYTHM, +S1, +S2. absent: Bradycardia, Tachycardia , JVD, Systolic Murmur - GI/Abdominal Exam GI & Abdominal Exam: Normal Bowel Sounds, Soft. absent: Tenderness - Extremities Exam Extremities exam: Positive for: normal capillary refill, normal inspection, pedal pulses present. Negative for: calf tenderness - Neurological Exam Neurological exam: Alert, CN II-XII Intact, Normal Gait, Oriented x3, Reflexes Normal - Psychiatric Exam Psychiatric exam: Normal Affect, Normal Mood - Skin Skin Exam: Normal Color, Warm Results - Vital Signs Recent Vital Signs: Last Vital Signs Temp 97.8 F 01/30/18 08:00 Pulse 65 01/30/18 10:00 Resp 13 01/30/18 09:09 BP 157/72 H 01/30/18 09:09 Pulse Ox 92 L 01/30/18 09:09 - Labs Result Diagrams: 01/30/18 06:07 01/30/18 06:07 Labs: Laboratory Results - last 24 hr 01/29/18 01/29/18 01/29/18 17:26 17:26 17:26 WBC 11.3 H RBC 5.44 Hgb 17.0 Hct 51.6 H MCV 94.9 H MCH 31.2 H MCHC 32.9 L RDW 13.4 Plt Count 255 MPV 8.7 Neut % (Auto) 46.6 L Lymph % (Auto) 35.4 [place] % (Auto) 14.3 H Eos % (Auto) 2.8 Baso % (Auto) 0.9 Neut # (Auto) 5.3 Lymph # (Auto) 4.0 [place] # (Auto) 1.6 H Eos # (Auto) 0.3 Baso # (Auto) 0.1 PT 11.2 INR 1.0 APTT 30 Puncture Site pCO2 pO2 HCO3 ABG pH ABG Total CO2 ABG O2 Saturation ABG Base Excess Hans Test ABG Potassium A-a O2 Difference Respiratory Index Glucose Lactate Liter Flow FiO2 Sodium 152 H Potassium 4.5 Chloride 106 Carbon Dioxide 13 L Anion Gap 37 H BUN 9 Creatinine 1.1 Est GFR ( Amer) > 60 Est GFR (Non-Af Amer) > 60 POC Glucose (mg/dL) Random Glucose 160 H Hemoglobin A1c Calcium 10.8 H Magnesium Total Bilirubin 0.6 AST 161 H ALT 179 H Alkaline Phosphatase 86 Troponin I < 0.0120 Total Protein 9.7 H Albumin 5.3 H Globulin 4.3 H Albumin/Globulin Ratio 1.2 Triglycerides 235 H Cholesterol 237 H LDL Cholesterol Direct 118 HDL Cholesterol 71 H Arterial Blood Potassium Urine Color Urine Clarity Urine pH Ur Specific Bath Urine Protein Urine Glucose (UA) Urine Ketones Urine Blood Urine Nitrate Urine Bilirubin Urine Urobilinogen Ur Leukocyte Esterase Urine WBC (Auto) Urine RBC (Auto) Amorphous Sediment Urine Bacteria Hyaline Casts Urine Opiates Screen Urine Methadone Screen Ur Barbiturates Screen Ur Phencyclidine Scrn Ur Amphetamines Screen U Benzodiazepines Scrn U Oth Cocaine Metabols U Cannabinoids Screen Alcohol, Quantitative 14 H Blood Type Antibody Screen 01/29/18 01/29/18 01/29/18 17:26 17:26 17:26 WBC RBC Hgb Hct MCV MCH MCHC RDW Plt Count MPV Neut % (Auto) Lymph % (Auto) [place] % (Auto) Eos % (Auto) Baso % (Auto) Neut # (Auto) Lymph # (Auto) [place] # (Auto) Eos # (Auto) Baso # (Auto) PT INR APTT Puncture Site pCO2 pO2 HCO3 ABG pH ABG Total CO2 ABG O2 Saturation ABG Base Excess Hans Test ABG Potassium A-a O2 Difference Respiratory Index Glucose Lactate Liter Flow FiO2 Sodium Potassium Chloride Carbon Dioxide Anion Gap BUN Creatinine Est GFR ( Amer) Est GFR (Non-Af Amer) POC Glucose (mg/dL) Random Glucose Hemoglobin A1c 5.8 Calcium Magnesium 2.4 H Total Bilirubin AST ALT Alkaline Phosphatase Troponin I Total Protein Albumin Globulin Albumin/Globulin Ratio Triglycerides Cholesterol LDL Cholesterol Direct HDL Cholesterol Arterial Blood Potassium Urine Color Urine Clarity Urine pH Ur Specific Bath Urine Protein Urine Glucose (UA) Urine Ketones Urine Blood Urine Nitrate Urine Bilirubin Urine Urobilinogen Ur Leukocyte Esterase Urine WBC (Auto) Urine RBC (Auto) Amorphous Sediment Urine Bacteria Hyaline Casts Urine Opiates Screen Urine Methadone Screen Ur Barbiturates Screen Ur Phencyclidine Scrn Ur Amphetamines Screen U Benzodiazepines Scrn U Oth Cocaine Metabols U Cannabinoids Screen Alcohol, Quantitative Blood Type A POSITIVE Antibody Screen Negative 01/29/18 01/29/1818 18:14 18:14 00:31 WBC RBC Hgb Hct MCV MCH MCHC RDW Plt Count MPV Neut % (Auto) Lymph % (Auto) [place] % (Auto) Eos % (Auto) Baso % (Auto) Neut # (Auto) Lymph # (Auto) [place] # (Auto) Eos # (Auto) Baso # (Auto) PT INR APTT Puncture Site Lr pCO2 41 pO2 81 HCO3 25.8 ABG pH 7.41 ABG Total CO2 27.3 ABG O2 Saturation 97.3 ABG Base Excess 1.2 Hans Test Pos ABG Potassium 4.1 A-a O2 Difference 17.0 Respiratory Index 0.2 Glucose 107 Lactate 1.7 Liter Flow 0 FiO2 21.0 Sodium 138.0 Potassium Chloride 105.0 Carbon Dioxide Anion Gap BUN Creatinine Est GFR ( Amer) Est GFR (Non-Af Amer) POC Glucose (mg/dL) Random Glucose Hemoglobin A1c Calcium Magnesium Total Bilirubin AST ALT Alkaline Phosphatase Troponin I Total Protein Albumin Globulin Albumin/Globulin Ratio Triglycerides Cholesterol LDL Cholesterol Direct HDL Cholesterol Arterial Blood Potassium 4.1 Urine Color Yellow Urine Clarity Clear Urine pH 5.0 Ur Specific Bath 1.017 Urine Protein 2+ H Urine Glucose (UA) Normal Urine Ketones Negative Urine Blood 2+ H Urine Nitrate Negative Urine Bilirubin Negative Urine Urobilinogen Normal Ur Leukocyte Esterase Neg Urine WBC (Auto) 1 Urine RBC (Auto) 12 H Amorphous Sediment Moderate H Urine Bacteria Rare Hyaline Casts 6-10 H Urine Opiates Screen Positive H Urine Methadone Screen Negative Ur Barbiturates Screen Negative Ur Phencyclidine Scrn Negative Ur Amphetamines Screen Negative U Benzodiazepines Scrn Negative U Oth Cocaine Metabols Negative U Cannabinoids Screen Negative Alcohol, Quantitative Blood Type Antibody Screen 01/30/18 01/30/18 01/30/18 06:07 06:07 06:07 WBC 9.0 RBC 4.76 Hgb 14.9 D Hct 43.5 MCV 91.4 D MCH 31.4 H MCHC 34.3 RDW 13.0 Plt Count 173 MPV 9.1 Neut % (Auto) 75.7 H Lymph % (Auto) 13.7 L [place] % (Auto) 10.1 H Eos % (Auto) 0.1 Baso % (Auto) 0.4 Neut # (Auto) 6.8 Lymph # (Auto) 1.2 [place] # (Auto) 0.9 H Eos # (Auto) 0.0 Baso # (Auto) 0.0 PT INR APTT 27 Puncture Site pCO2 pO2 HCO3 ABG pH ABG Total CO2 ABG O2 Saturation ABG Base Excess Hans Test ABG Potassium A-a O2 Difference Respiratory Index Glucose Lactate Liter Flow FiO2 Sodium 139 Potassium 4.0 Chloride 103 Carbon Dioxide 25 Anion Gap 15 BUN 14 Creatinine 0.7 L Est GFR ( Amer) > 60 Est GFR (Non-Af Amer) > 60 POC Glucose (mg/dL) Random Glucose 105 Hemoglobin A1c Calcium 9.2 Magnesium 2.5 H Total Bilirubin 0.5 AST 98 H D ALT 143 H D Alkaline Phosphatase 74 Troponin I Total Protein 7.7 Albumin 4.2 Globulin 3.5 Albumin/Globulin Ratio 1.2 Triglycerides Cholesterol LDL Cholesterol Direct HDL Cholesterol Arterial Blood Potassium Urine Color Urine Clarity Urine pH Ur Specific Bath Urine Protein Urine Glucose (UA) Urine Ketones Urine Blood Urine Nitrate Urine Bilirubin Urine Urobilinogen Ur Leukocyte Esterase Urine WBC (Auto) Urine RBC (Auto) Amorphous Sediment Urine Bacteria Hyaline Casts Urine Opiates Screen Urine Methadone Screen Ur Barbiturates Screen Ur Phencyclidine Scrn Ur Amphetamines Screen U Benzodiazepines Scrn U Oth Cocaine Metabols U Cannabinoids Screen Alcohol, Quantitative Blood Type Antibody Screen 01/30/18 07:13 WBC RBC Hgb Hct MCV MCH MCHC RDW Plt Count MPV Neut % (Auto) Lymph % (Auto) [place] % (Auto) Eos % (Auto) Baso % (Auto) Neut # (Auto) Lymph # (Auto) [place] # (Auto) Eos # (Auto) Baso # (Auto) PT INR APTT Puncture Site pCO2 pO2 HCO3 ABG pH ABG Total CO2 ABG O2 Saturation ABG Base Excess Hans Test ABG Potassium A-a O2 Difference Respiratory Index Glucose Lactate Liter Flow FiO2 Sodium Potassium Chloride Carbon Dioxide Anion Gap BUN Creatinine Est GFR ( Amer) Est GFR (Non-Af Amer) POC Glucose (mg/dL) 103 Random Glucose Hemoglobin A1c Calcium Magnesium Total Bilirubin AST ALT Alkaline Phosphatase Troponin I Total Protein Albumin Globulin Albumin/Globulin Ratio Triglycerides Cholesterol LDL Cholesterol Direct HDL Cholesterol Arterial Blood Potassium Urine Color Urine Clarity Urine pH Ur Specific Bath Urine Protein Urine Glucose (UA) Urine Ketones Urine Blood Urine Nitrate Urine Bilirubin Urine Urobilinogen Ur Leukocyte Esterase Urine WBC (Auto) Urine RBC (Auto) Amorphous Sediment Urine Bacteria Hyaline Casts Urine Opiates Screen Urine Methadone Screen Ur Barbiturates Screen Ur Phencyclidine Scrn Ur Amphetamines Screen U Benzodiazepines Scrn U Oth Cocaine Metabols U Cannabinoids Screen Alcohol, Quantitative Blood Type Antibody Screen Assessment & Plan - Assessment and Plan (Free Text) Plan: Mr Spears is a 62 year old male with a PMHx of 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), seizure disorder (on Keppra and Lamictal), colon CA ( remission s/p resection and chemotherapy), hepatectomy for liver mets, HTN, HLD who was brought by EMS for seizure activity: Seizure Activity -2/2 to not taking his home AEDs, patient ran out of meds 2 days prior to seizure, also has not followed up with his neurologist Dr Way "in a long while" * At home he takes keppra 1500mg po bid, lamictal 100mg in am and 300mg in pm ( confirmed w/ pharmacy) -2/2 to heavy alcohol use, last drink 18 hrs to seizure -Has been seizure-free since admission -There was initially concern in ED for stroke-like symptoms however on our exam no focal deficits noted, NIHSS was 0 (and also 0 in ED), and imaging does not show any new pathology (still pending official read of CTA head/neck) -Continue keppra 500mg ivpb q12h -Continue lamictal 20mmg po bid -Recommend to taper ativan -he passed swallow eval, continue ciwa, continue seizure precautions Imaging: -Head CT w/o contrast: * No acute intracranial pathology. Right parietal occipital region encephalomalacia subjacent to prior craniotomy. Please note, there is limited assessment in the absence of intravenous contrast. Contrast-enhanced MRI would better evaluate for residual tumor in this region. -CTA head/neck: pending official read -Pending CTA head/neck, if no acute pathology seen neurology will sign-off. It was emphasized to patient he needs to follow-up with Dr Way, to reduce his alcohol intake and to get his medications re-filled before he runs out of them. Case discussed with neurologist Dr Parham. <Dionicio Parham - Last Filed: 01/30/18 20:10> Meds - Medications Medications: Current Medications Amlodipine Besylate (Norvasc) 10 mg PO DAILY REPLACED BY [facility] Last Admin: 01/30/18 09:33 Dose: 10 mg Heparin Sodium (Porcine) (Heparin) 5,000 units SC Q8 REPLACED BY [facility] Last Admin: 01/30/18 13:36 Dose: 5,000 units Levetiracetam 500 mg/ Dextrose 105 mls @ 420 mls/hr IVPB Q12H REPLACED BY [facility] Last Admin: 01/30/18 18:10 Dose: 420 mls/hr Sodium Chloride (Sodium Chloride 0.45%) 1,000 mls @ 100 mls/hr IV .Q10H REPLACED BY [facility] Last Admin: 01/30/18 15:42 Dose: 100 mls/hr Ibuprofen (Motrin Tab) 600 mg PO TID PRN PRN Reason: Pain, Mild - Severe (1-10) Last Admin: 01/30/18 01:40 Dose: 600 mg Lamotrigine (Lamictal) 200 mg PO BID REPLACED BY [facility] Last Admin: 01/30/18 18:15 Dose: 200 mg Lisinopril (Zestril) 10 mg PO DAILY REPLACED BY [facility] Last Admin: 01/30/18 11:03 Dose: 10 mg Lorazepam (Ativan) 2 mg IVP Q2H PRN PRN Reason: Symptoms of alcohol withdrawl Ondansetron HCl (Zofran Inj) 4 mg IVP Q6H PRN PRN Reason: Nausea/Vomiting Last Admin: 01/29/18 20:53 Dose: 4 mg Pantoprazole Sodium (Protonix Ec Tab) 40 mg PO DAILY [facility] Last Admin: 01/30/18 09:33 Dose: 40 mg Rosuvastatin Calcium (Crestor) 5 mg PO HS [facility] Results - Vital Signs Recent Vital Signs: Last Vital Signs Temp 98.2 F 01/30/18 16:00 Pulse 67 01/30/18 19:10 Resp 15 01/30/18 19:10 BP 111/82 01/30/18 19:10 Pulse Ox 96 01/30/18 19:10 - Labs Result Diagrams: 01/30/18 06:07 01/30/18 06:07 Labs: Laboratory Results - last 24 hr 01/29/18 01/29/18 01/30/18 17:26 17:26 00:31 WBC RBC Hgb Hct MCV MCH MCHC RDW Plt Count MPV Neut % (Auto) Lymph % (Auto) [place] % (Auto) Eos % (Auto) Baso % (Auto) Neut # (Auto) Lymph # (Auto) [place] # (Auto) Eos # (Auto) Baso # (Auto) APTT Puncture Site Lr pCO2 41 pO2 81 HCO3 25.8 ABG pH 7.41 ABG Total CO2 27.3 ABG O2 Saturation 97.3 ABG Base Excess 1.2 Hans Test Pos ABG Potassium 4.1 A-a O2 Difference 17.0 Respiratory Index 0.2 Sodium 138.0 Chloride 105.0 Glucose 107 Lactate 1.7 Liter Flow 0 FiO2 21.0 Potassium Carbon Dioxide Anion Gap BUN Creatinine Est GFR ( Amer) Est GFR (Non-Af Amer) POC Glucose (mg/dL) Random Glucose Hemoglobin A1c 5.8 Calcium Magnesium 2.4 H Total Bilirubin AST ALT Alkaline Phosphatase Total Protein Albumin Globulin Albumin/Globulin Ratio Arterial Blood Potassium 4.1 01/30/18 01/30/18 01/30/18 06:07 06:07 06:07 WBC 9.0 RBC 4.76 Hgb 14.9 D Hct 43.5 MCV 91.4 D MCH 31.4 H MCHC 34.3 RDW 13.0 Plt Count 173 MPV 9.1 Neut % (Auto) 75.7 H Lymph % (Auto) 13.7 L [place] % (Auto) 10.1 H Eos % (Auto) 0.1 Baso % (Auto) 0.4 Neut # (Auto) 6.8 Lymph # (Auto) 1.2 [place] # (Auto) 0.9 H Eos # (Auto) 0.0 Baso # (Auto) 0.0 APTT 27 Puncture Site pCO2 pO2 HCO3 ABG pH ABG Total CO2 ABG O2 Saturation ABG Base Excess Hans Test ABG Potassium A-a O2 Difference Respiratory Index Sodium 139 Chloride 103 Glucose Lactate Liter Flow FiO2 Potassium 4.0 Carbon Dioxide 25 Anion Gap 15 BUN 14 Creatinine 0.7 L Est GFR ( Amer) > 60 Est GFR (Non-Af Amer) > 60 POC Glucose (mg/dL) Random Glucose 105 Hemoglobin A1c Calcium 9.2 Magnesium 2.5 H Total Bilirubin 0.5 AST 98 H D ALT 143 H D Alkaline Phosphatase 74 Total Protein 7.7 Albumin 4.2 Globulin 3.5 Albumin/Globulin Ratio 1.2 Arterial Blood Potassium 01/30/18 01/30/18 01/30/18 07:13 11:50 16:38 WBC RBC Hgb Hct MCV MCH MCHC RDW Plt Count MPV Neut % (Auto) Lymph % (Auto) [place] % (Auto) Eos % (Auto) Baso % (Auto) Neut # (Auto) Lymph # (Auto) [place] # (Auto) Eos # (Auto) Baso # (Auto) APTT Puncture Site pCO2 pO2 HCO3 ABG pH ABG Total CO2 ABG O2 Saturation ABG Base Excess Hans Test ABG Potassium A-a O2 Difference Respiratory Index Sodium Chloride Glucose Lactate Liter Flow FiO2 Potassium Carbon Dioxide Anion Gap BUN Creatinine Est GFR ( Amer) Est GFR (Non-Af Amer) POC Glucose (mg/dL) 103 126 H 101 Random Glucose Hemoglobin A1c Calcium Magnesium Total Bilirubin AST ALT Alkaline Phosphatase Total Protein Albumin Globulin Albumin/Globulin Ratio Arterial Blood Potassium Attending/Attestation - Attestation I have personally seen and examined this patient.: Yes I have fully participated in the care of the patient.: Yes I have reviewed all pertinent clinical information: Yes Notes (Text): 01/30/18 20:06 Agree with assessment and plan. On exam, the patient was neurologically intact and non-focal.
--- NOTE | 2018-01-30 14:54 | CT ---
PROCEDURE: CTA HEAD AND NECK WITH CONTRAST HISTORY: Left sided weakness COMPARISON: None available. TECHNIQUE: Initial noncontrast head CT was performed. Subsequently, CT angiogram of the head and neck were performed after the intravenous administration of 80 mL of Omnipaque 350. Contiguous 1.5mm thick images were obtained in the axial plane of the neck. 2-D coronal and sagittal MPR images were obtained. Imaging postprocessing was performed with 3-D images also obtained. A delayed contrast head CT was also obtained. This CT exam was performed using one or more of the following dose reduction techniques: Automated exposure control, adjustment of the mA and/or kV according to patient size, and/or use of iterative reconstruction technique. Contrast dose: 100 mL Visipaque Radiation dose: Total exam DLP = [id number] mGy-cm. FINDINGS: HEAD: Right: The intracranial internal carotid artery, and anterior and middle cerebral arteries are widely patent. Left: The intracranial internal carotid artery, and anterior and middle cerebral arteries are widely patent. Posterior circulation: The visualized intracranial vertebral arteries, basilar artery and posterior cerebral arteries are widely patent. There is no endoluminal filling defect to suggest thrombus. There is no intracranial saccular aneurysm. There is no abnormal enhancement on the postcontrast CT. NECK: There is a three vessel aortic arch. There is no stenosis at the origins of the great vessels at the level of the aortic arch. Right Carotid: On the right, the common carotid, internal carotid and external carotid arteries are widely patent. There is no hemodynamically significant stenosis in the internal carotid artery by NASCET criteria. A preliminary report was provided by [employer] services. Left Carotid: On the left, the common carotid, internal carotid and external carotid arteries are widely patent.There is no hemodynamically significant stenosis in the internal carotid arteries. There is no hemodynamically significant stenosis in the internal carotid artery by NASCET criteria. The vertebral arteries are widely patent. The visualized soft tissues of the neck are normal. The visualized brain and cervical spine are within normal limits. The lung apices are clear. IMPRESSION: 1. No evidence of endoluminal thrombus,occlusion or definite significant stenosis in the intracranial arteries. 2. No evidence of hemodynamically significant stenosis in the internal carotid arteries. 3. Patent bilateral vertebral arteries.
--- NOTE | 2018-01-30 17:30 | CP.PCM.PN ---
Subjective - Date & Time of Evaluation Date of Evaluation: 01/30/18 Time of Evaluation: 07:30 - Subjective Subjective: PGY-1 Medicine Progress note for Dr. Cagle Patient was seen and examined today at bedside in no acute distress. Nurse reports no overnight events. Patient reports great improvement in mental status than when he first arrived. Denies chest pain, shortness of breath, abdominal pain, loss of consciousness. Patient has been voiding and having BM without difficulty. Tolerating diet. Objective - Vital Signs/Intake and Output Vital Signs (last 24 hours): Temp Pulse Resp BP Pulse Ox 98.2 F 57 L 20 121/46 L 97 01/30/18 16:00 01/30/18 16:00 01/30/18 16:00 01/30/18 15:10 01/30/18 16:00 Intake and Output: 01/30/18 01/30/18 06:59 18:59 Intake Total 900 1670 Balance 900 1670 - Medications Medications: Current Medications Amlodipine Besylate (Norvasc) 10 mg PO DAILY [facility] Last Admin: 01/30/18 09:33 Dose: 10 mg Heparin Sodium (Porcine) (Heparin) 5,000 units SC Q8 [facility] Last Admin: 01/30/18 13:36 Dose: 5,000 units Levetiracetam 500 mg/ Dextrose 105 mls @ 420 mls/hr IVPB Q12H [facility] Last Admin: 01/30/18 06:10 Dose: 420 mls/hr Sodium Chloride (Sodium Chloride 0.45%) 1,000 mls @ 100 mls/hr IV .Q10H [facility] Last Admin: 01/30/18 15:42 Dose: 100 mls/hr Ibuprofen (Motrin Tab) 600 mg PO TID PRN PRN Reason: Pain, Mild - Severe (1-10) Last Admin: 01/30/18 01:40 Dose: 600 mg Lamotrigine (Lamictal) 200 mg PO BID [facility] Lisinopril (Zestril) 10 mg PO DAILY [facility] Last Admin: 01/30/18 11:03 Dose: 10 mg Lorazepam (Ativan) 2 mg IVP Q2H PRN PRN Reason: Symptoms of alcohol withdrawl Ondansetron HCl (Zofran Inj) 4 mg IVP Q6H PRN PRN Reason: Nausea/Vomiting Last Admin: 01/29/18 20:53 Dose: 4 mg Pantoprazole Sodium (Protonix Ec Tab) 40 mg PO DAILY [facility] Last Admin: 01/30/18 09:33 Dose: 40 mg Rosuvastatin Calcium (Crestor) 5 mg PO HS [facility] - Labs Labs: 01/30/18 06:07 01/30/18 06:07 PT 11.2 SECONDS (9.7-12.2) 01/29/18 17:26 INR 1.0 01/29/18 17:26 APTT 27 SECONDS (21-34) 01/30/18 06:07 - Constitutional Appears: Non-toxic, No Acute Distress - Head Exam Head Exam: ATRAUMATIC, NORMOCEPHALIC - Eye Exam Eye Exam: EOMI, Normal appearance - ENT Exam ENT Exam: Mucous Membranes Moist, Normal Exam - Respiratory Exam Respiratory Exam: Clear to Ausculation Bilateral, NORMAL BREATHING PATTERN. absent: Rales, Rhonchi, Wheezes - Cardiovascular Exam Cardiovascular Exam: REGULAR RHYTHM, +S1, +S2. absent: Murmur - GI/Abdominal Exam GI & Abdominal Exam: Soft, Normal Bowel Sounds. absent: Firm, Guarding, Tenderness, Rebound - Extremities Exam Extremities Exam: Full ROM, Normal Capillary Refill. absent: Pedal Edema, Tenderness - Neurological Exam Neurological Exam: Alert, Awake, Normal Gait, Oriented x3 - Psychiatric Exam Psychiatric exam: Normal Affect, Normal Mood - Skin Skin Exam: Dry, Intact, Normal Color Assessment and Plan - Assessment and Plan (Free Text) Assessment: Mr. Spears is a 62 year old male with a past medical history of brain tumor (s/p brain tumor resection in 2015) and colon cancer (s/p resection) who presents to the ED with complaints of a seizure episode prior to coming to the hospital. Patient admitted for evaluation and treatment of seizure. Plan: Seizure 2/2 of Hx of Brain Tumor Resection vs Alcohol Withdrawal. CT Head (Adm): No acute intracranial pathology. Right parietal occipital region encephalomalacia subjacent to prior craniotomy. Please note, there is limited assessment in the absence of intravenous contrast. Contrast-enhanced MRI would better evaluate for residual tumor in this region. CXR (Adm): no acute pathology CTA Head/Neck (Adm): No Acute pathology EKG ED Course: Ativan during seizure, Keppra 1500mg Keppra 500mg Q12H IV home Lamictal XR 400 daily-> 200mg bid Neurology Consult (Dr. Parham) - signed off Seizure Precautions. Neurochecks, HOB elevated to 45 Degrees, Swallow Eval passed CIWA Protocol, aspiration precautions EtoH Abuse/Withdrawal Alcohol Lvl 14, UDS Positive for Opiates. CIWA protocol Zofran prn Banana Bag finished Ativan 2mg Q4H [facility]/ 2mg Q2H PRN Hypernatremia 1/2 NS @ 100mls/hr finished Monitor BMP High Anion Gap Metabolic Acidosis Likely 2/2 to EtOH ABG negative Hx of HTN/HLD - started on home med: lisinopril 10mg po daily imdur 30 po daily -> amlodipine 10mg po daily simvastatin 20 -> Crestor 5mg po HS Proph Heparin 5000u sc q8 Protonix 40mg po daily Regular Diet Dispo: possible d/c tomorrow if no signs of withdrawal d/w Dr. Gurjit Russell PGY-1
--- NOTE | 2018-01-30 19:00 | CARD ---
APPROVED REPORT Date of service: 01/29/2018 EKG Measurement Heart [id number] <Conclusion> Normal sinus rhythm Possible Left atrial enlargement Incomplete right bundle branch block Left ventricular hypertrophy Nonspecific ST and T wave abnormality Abnormal ECG
[2018-01-31 00:38] VITALS: O2SAT 96
[2018-01-31] MEDS: Sodium Chloride 0.45% 1,000 ML IV SCH (02:17)
[2018-01-31 06:11] LABS: BASO % 0.6 % (0.0-2.0); EOS # 0.1 K/uL (0.0-0.7); EOS % 1.9 % (0.0-4.0); HEMOGLOBIN 14.6 g/dL (12.0-18.0); LYMPH # 1.7 K/uL (1.0-4.3); MEAN CELL VOLUME 91.2 fL (80.0-94.0); MEAN CORPUSCULAR HEMOGLOBIN 30.8 pg (27.0-31.0); MEAN CORPUSCULAR HGB CONC 33.8 g/dL (33.0-37.0); MEAN PLATELET VOLUME 9.1 fL (7.2-11.7); MONO # 0.7 K/uL (0.0-0.8); MONO % 10.6 % (0.0-10.0); NEUT % 60.9 % (50.0-75.0); RBC 4.75 Mil/uL (4.40-5.90); RED CELL DISTRIBUTION WIDTH 12.8 % (11.5-14.5); WHITE BLOOD COUNT 6.5 K/uL (4.8-10.8)
[2018-01-31 06:35] LABS: ALB/GLOB RATIO 1.2 (1.0-2.1); ALBUMIN 4.1 g/dL (3.5-5.0); ALT/SGPT 118 U/L (21-72); AST/SGOT 101 U/L (17-59); BLOOD UREA NITROGEN 13 mg/dL (9-20); CALCIUM 9.5 mg/dl (8.6-10.4); GFR NON-AFRICAN AMERICAN > 60
[2018-01-31 06:42] VITALS: PULSE 50; RESP 20
--- NOTE | 2018-01-31 09:31 | CP.PCM.PN ---
Subjective - Date & Time of Evaluation Date of Evaluation: 01/31/18 Time of Evaluation: 09:15 - Subjective Subjective: Hospitalist Progress Note Patient was seen and examined at 9:15 AM 01/31/18 ICU Bed 3 Upon FULL ROS: NO dysphagia/odynopahgia NO soreness in throat NO cough/SOB/Wheezing NO sinus/nasal congestion NO fever/chills NO muscle aches/pains NO joint pain NO chest pain/palpation NO abdominal pain NO n/v/d/c: last normal bowel movement was 01/30/18 NO burning pain with urination NO HSIEH NO lightheadedness/dizziness NO paresthesias NO new changes in vision NO new changes in hearing Exam: General: AAOX3, NAD HEENT: NCA, EOMI, PERRLA, NO cervical/supraclavicular/submandibular lymphadenopathy, NO pharyngeal erythema/exudate, Nasal Turbinates are nonerythematous/nonedematous, Oral Mucosa is moist Cardio: NS1 and NS2, NO M/R/G Resp: CTA B/L, NO R/R/W GI: BSx4, Soft, NT, NO HSM, NO guarding/rebound tenderness Ext: Pulses are strong and equal, Capillary Refill is 2 seconds, NO edema Neuro: CN II through XII are grossly intact Assessments: 1). Seizure secondary to noncompliance with medications: continue the Keppra and Lamictal and follow up with his outpatient neurologist Dr. Sylvester 2). ETOH Abuse: counseled extensively on 01/30/18 exam. NOT interested in AA meetings as he has gone in the past. Stated that he is alive despite all that has happened to him. NO signes of withdrawl on exam today (last drink was Tuesday01/28/18) 3). Hypernatremia: resolved 4). Anion Gap Metabolic Acidosis: resolved with IVF 5). HTN: continue the Imdur and Lisinopril 6). HLD: continue the Simvastatin 7). GERD: continue the Omeprazole 8). Elevated LFTs: secondary to the alcohol abuse. Trending down. Patient has been cleared by Neurology He is medically stable for outpatient follow up with his PMD DR. Nagi Mccoy The following instructions were explained to the patient and a copy of these instructions will need to be provided to him upon discharge: 1). Schedule follow up with your Neurologist Dr. Duarte to take place this week. 2). Schedule follow up with your Primary Care Provider Dr. Nagi Mccoy to take place in the next 7 to 10 days. 3). Please have the following medications filled at your pharmacy on your way home from the hospital: Lamictal Xr 400 mg, 1 tablet by 1 time a day (2 PM), Dispense #30, NO refills Keppra 500 mg, 1 tablet by mouth 2 times a day (8 AM and 8 PM), Dispense #60, NO refills Imdur ER 30 mg, 1 tablet by mouth 1 time a day (8 AM), Dispense #30, NO refills Lisinopril 10 mg, 1 tablet by mouth 1 time a day (8 PM), Dispense #30, NO refills Simvastatin 20 mg, 1 tablet by mouth 1 time a day (8 PM), Dispense #30, NO refills Omeprazole 40 mg, 1 tablet by mouth 1 time a day (8 AM), Dispense #30 NO refills 4). You must stop drinking. You stated that AA meetings are not your thing. You will increase your chances of being alcohol free by going to AA meetings. Please go. You can perform a simple Google search to find the nearest AA meeting to your residence. 5). Please take care and be well. Patrice Cagle D.O. Objective - Vital Signs/Intake and Output Vital Signs (last 24 hours): Temp Pulse Resp BP Pulse Ox 98 F 50 L 20 170/71 H 96 01/31/18 04:00 01/31/18 04:00 01/31/18 04:00 01/31/18 04:00 01/31/18 04:00 Intake and Output: 01/31/18 01/31/18 06:59 18:59 Intake Total 1900 Balance 1900 - Medications Medications: Current Medications Amlodipine Besylate (Norvasc) 10 mg PO DAILY [facility] Last Admin: 01/30/18 09:33 Dose: 10 mg Heparin Sodium (Porcine) (Heparin) 5,000 units SC Q8 [facility] Last Admin: 01/31/18 05:52 Dose: 5,000 units Levetiracetam 500 mg/ Dextrose 105 mls @ 420 mls/hr IVPB Q12H [facility] Last Admin: 01/31/18 06:01 Dose: 420 mls/hr Sodium Chloride (Sodium Chloride 0.45%) 1,000 mls @ 100 mls/hr IV .Q10H [facility] Last Admin: 01/31/18 02:17 Dose: 100 mls/hr Ibuprofen (Motrin Tab) 600 mg PO TID PRN PRN Reason: Pain, Mild - Severe (1-10) Last Admin: 01/31/18 02:14 Dose: 600 mg Lamotrigine (Lamictal) 200 mg PO BID [facility] Last Admin: 01/30/18 18:15 Dose: 200 mg Lisinopril (Zestril) 10 mg PO DAILY [facility] Last Admin: 01/30/18 11:03 Dose: 10 mg Lorazepam (Ativan) 2 mg IVP Q2H PRN PRN Reason: Symptoms of alcohol withdrawl Ondansetron HCl (Zofran Inj) 4 mg IVP Q6H PRN PRN Reason: Nausea/Vomiting Last Admin: 01/29/18 20:53 Dose: 4 mg Pantoprazole Sodium (Protonix Ec Tab) 40 mg PO DAILY [facility] Last Admin: 01/30/18 09:33 Dose: 40 mg Rosuvastatin Calcium (Crestor) 5 mg PO HS [facility] Last Admin: 01/30/18 21:05 Dose: 5 mg - Labs Labs: 01/31/18 06:06 01/31/18 06:06 PT 11.2 SECONDS (9.7-12.2) 01/29/18 17:26 INR 1.0 01/29/18 17:26 APTT 31 SECONDS (21-34) 01/31/18 06:06
[2018-01-31] MEDS: Pantoprazole 40 mg EC Tab PO SCH (09:55)
--- NOTE | 2018-01-31 10:21 | CP.PCM.DIS ---
Provider - Provider Date of Admission: 01/29/18 18:49 Attending physician: Patrice Cagle MD Time Spent in preparation of Discharge (in minutes): 45 Hospital Course - Lab Results Lab Results: Micro Results 01/29/18 Unknown Urine,Clean Catch Urine Culture - Final No Growth (<1,000 CFU/ML) Most Recent Lab Values WBC 6.5 K/uL (4.8-10.8) 01/31/18 06:06 RBC 4.75 Mil/uL (4.40-5.90) 01/31/18 06:06 Hgb 14.6 g/dL (12.0-18.0) 01/31/18 06:06 Hct 43.3 % (35.0-51.0) 01/31/18 06:06 MCV 91.2 fL (80.0-94.0) 01/31/18 06:06 MCH 30.8 pg (27.0-31.0) 01/31/18 06:06 MCHC 33.8 g/dL (33.0-37.0) 01/31/18 06:06 RDW 12.8 % (11.5-14.5) 01/31/18 06:06 Plt Count 151 K/uL (130-400) 01/31/18 06:06 MPV 9.1 fL (7.2-11.7) 01/31/18 06:06 Neut % (Auto) 60.9 % (50.0-75.0) 01/31/18 06:06 Lymph % (Auto) 26.0 % (20.0-40.0) 01/31/18 06:06 [place] % (Auto) 10.6 % (0.0-10.0) H 01/31/18 06:06 Eos % (Auto) 1.9 % (0.0-4.0) 01/31/18 06:06 Baso % (Auto) 0.6 % (0.0-2.0) 01/31/18 06:06 Neut # (Auto) 4.0 K/uL (1.8-7.0) 01/31/18 06:06 Lymph # (Auto) 1.7 K/uL (1.0-4.3) 01/31/18 06:06 [place] # (Auto) 0.7 K/uL (0.0-0.8) 01/31/18 06:06 Eos # (Auto) 0.1 K/uL (0.0-0.7) 01/31/18 06:06 Baso # (Auto) 0.0 K/uL (0.0-0.2) 01/31/18 06:06 PT 11.2 SECONDS (9.7-12.2) 01/29/18 17:26 INR 1.0 01/29/18 17:26 APTT 31 SECONDS (21-34) 01/31/18 06:06 Puncture Site Lr 01/30/18 00:31 pCO2 41 mm/Hg (35-45) 01/30/18 00:31 pO2 81 mm/Hg (80-100) 01/30/18 00:31 HCO3 25.8 mmol/L (21-28) 01/30/18 00:31 ABG pH 7.41 (7.35-7.45) 01/30/18 00:31 ABG Total CO2 27.3 mmol/L (22-28) 01/30/18 00:31 ABG O2 Saturation 97.3 % (95-98) 01/30/18 00:31 ABG Base Excess 1.2 mmol/L (-2.0-3.0) 01/30/18 00:31 Hans Test Pos 01/30/18 00:31 ABG Potassium 4.1 mmol/L (3.6-5.2) 01/30/18 00:31 A-a O2 Difference 17.0 mm/Hg 01/30/18 00:31 Respiratory Index 0.2 01/30/18 00:31 Sodium 138.0 mmol/l (132-148) 01/30/18 00:31 Chloride 105.0 mmol/L (98-107) 01/30/18 00:31 Glucose 107 mg/dl (75-110) 01/30/18 00:31 Lactate 1.7 mmol/L (0.7-2.1) 01/30/18 00:31 Liter Flow 0 01/30/18 00:31 FiO2 21.0 % 01/30/18 00:31 Sodium 141 mmol/L (132-148) 01/31/18 06:06 Potassium 4.3 mmol/L (3.6-5.2) 01/31/18 06:06 Chloride 105 mmol/L (98-107) 01/31/18 06:06 Carbon Dioxide 26 mmol/L (22-30) 01/31/18 06:06 Anion Gap 14 (10-20) 01/31/18 06:06 BUN 13 mg/dL (9-20) 01/31/18 06:06 Creatinine 0.8 mg/dL (0.8-1.5) 01/31/18 06:06 Est GFR ( Amer) > 60 01/31/18 06:06 Est GFR (Non-Af Amer) > 60 01/31/18 06:06 POC Glucose (mg/dL) 89 mg/dL (65-110) 01/31/18 07:22 Random Glucose 108 mg/dL (75-110) 01/31/18 06:06 Hemoglobin A1c 5.8 % (4.2-6.5) 01/29/18 17:26 Calcium 9.5 mg/dl (8.6-10.4) 01/31/18 06:06 Magnesium 2.1 mg/dL (1.6-2.3) 01/31/18 06:06 Total Bilirubin 0.5 mg/dL (0.2-1.3) 01/31/18 06:06 AST 101 U/L (17-59) H 01/31/18 06:06 ALT 118 U/L (21-72) H 01/31/18 06:06 Alkaline Phosphatase 67 U/L (38-126) 01/31/18 06:06 Troponin I < 0.0120 ng/mL (0.00-0.120) 01/29/18 17:26 Total Protein 7.5 g/dL (6.3-8.3) 01/31/18 06:06 Albumin 4.1 g/dL (3.5-5.0) 01/31/18 06:06 Globulin 3.4 gm/dL (2.2-3.9) 01/31/18 06:06 Albumin/Globulin Ratio 1.2 (1.0-2.1) 01/31/18 06:06 Triglycerides 235 mg/dL (0-149) H 01/29/18 17:26 Cholesterol 237 mg/dL (0-199) H 01/29/18 17:26 LDL Cholesterol Direct 118 mg/dL (0-129) 01/29/18 17:26 HDL Cholesterol 71 mg/dL (30-70) H 18 17:26 Arterial Blood Potassium 4.1 mmol/L (3.6-5.2) 18 00:31 Urine Color Yellow (YELLOW) 01/29/18 18:14 Urine Clarity Clear (Clear) 01/29/18 18:14 Urine pH 5.0 (5.0-8.0) 01/29/18 18:14 Ur Specific [place] 1.017 (1.003-1.030) 01/29/18 18:14 Urine Protein 2+ mg/dL (NEGATIVE) H 01/29/18 18:14 Urine Glucose (UA) Normal mg/dL (Normal) 01/29/18 18:14 Urine Ketones Negative mg/dL (NEGATIVE) 01/29/18 18:14 Urine Blood 2+ (NEGATIVE) H 01/29/18 18:14 Urine Nitrate Negative (NEGATIVE) 01/29/18 18:14 Urine Bilirubin Negative (NEGATIVE) 01/29/18 18:14 Urine Urobilinogen Normal mg/dL (0.2-1.0) 01/29/18 18:14 Ur Leukocyte Esterase Neg Beau/uL (Negative) 01/29/18 18:14 Urine WBC (Auto) 1 /hpf (0-5) 01/29/18 18:14 Urine RBC (Auto) 12 /hpf (0-3) H 18 18:14 Amorphous Sediment Moderate /ul (<OCC) H 18 18:14 Urine Bacteria Rare (<OCC) 01/29/18 18:14 Hyaline Casts 6-10 /lpf (0-2) H 18 18:14 Urine Opiates Screen Positive (NEGATIVE) H 18 18:14 Urine Methadone Screen Negative (NEGATIVE) 01/29/18 18:14 Ur Barbiturates Screen Negative (NEGATIVE) 01/29/18 18:14 Ur Phencyclidine Scrn Negative (NEGATIVE) 18 18:14 Ur Amphetamines Screen Negative (NEGATIVE) 18 18:14 U Benzodiazepines Scrn Negative (NEGATIVE) 01/29/18 18:14 U Oth Cocaine Metabols Negative (NEGATIVE) 01/29/18 18:14 U Cannabinoids Screen Negative (NEGATIVE) 01/29/18 18:14 Alcohol, Quantitative 14 mg/dl (0-10) H 01/29/18 17:26 Blood Type A POSITIVE 01/29/18 17:26 Antibody Screen Negative 01/29/18 17:26 - Hospital Course Hospital Course: Mr. Spears is a 62 year old male with a past medical history of brain tumor (s/p brain tumor resection in 2014) who presents to the ED with complaints of a seizure episode prior to coming to the hospital. Patient states he was aware that the seizure was about the occur because he began to feel dizzy. Patient had 1 episode of a tonic-clonic seizure in the ED lasting about 1 minute and treated with Ativan per E.D note. A loading dose of Keppra was given in the E.D due to history of brain tumor s/p resection. Patient denies any fever, chills, urinary/bowel incontinence, tongue biting, vision changes, chest pain, shortness of breath, abdominal pain, vomiting, changes in bowel habits, or urinary symptoms. Patient does admit to headache, diffuse body aches, and nausea. Of note, patient's history and review of systems may be unreliable due to patient's lethargy and lack of alertness. More detailed history and review of systems unobtainable due to patient's lethargy. Head CT and CTA Head/Neck negative for any acute pathology. CXR showed a small left pleural effusion. EKG NSR, incomplete RBBB, L ventricular hypertrophy. However, all this is stable and comparable to previous EKG. Neuro cleared him since imaging was negative and patient clinically improved after being placed on home medication confirmed by calling his pharmacy. Patient is not showing any signs of alcohol withdrawal and is medically stable for discharge. Primary Diagnosis: Seizure 2/2 medication noncompliance 1). Seizure secondary to noncompliance with medications: continue the Keppra and Lamictal and follow up with his outpatient neurologist Dr. Sylvester 2). ETOH Abuse: counseled extensively on 01/30/18 exam. NOT interested in AA meetings as he has gone in the past. Stated that he is alive despite all that has happened to him. NO signes of withdrawl on exam today (last drink was Tuesday01/28/18) 3). Hypernatremia: resolved 4). Anion Gap Metabolic Acidosis: resolved with IVF 5). HTN: continue the Imdur and Lisinopril 6). HLD: continue the Simvastatin 7). GERD: continue the Omeprazole 8). Elevated LFTs: secondary to the alcohol abuse. Trending down. Patient has been cleared by Neurology He is medically stable for outpatient follow up with his PMD DR. Nagi Mccoy The following instructions were explained to the patient and a copy of these instructions will need to be provided to him upon discharge: 1). Schedule follow up with your Neurologist Dr. Duarte to take place this week. 2). Schedule follow up with your Primary Care Provider Dr. Nagi Mccoy to take place in the next 7 to 10 days. 3). Please have the following medications filled at your pharmacy on your way home from the hospital: Lamictal Xr 400 mg, 1 tablet by 1 time a day (2 PM), Dispense #30, NO refills Keppra 500 mg, 1 tablet by mouth 2 times a day (8 AM and 8 PM), Dispense #60, NO refills Imdur ER 30 mg, 1 tablet by mouth 1 time a day (8 AM), Dispense #30, NO refills Lisinopril 10 mg, 1 tablet by mouth 1 time a day (8 PM), Dispense #30, NO refills Simvastatin 20 mg, 1 tablet by mouth 1 time a day (8 PM), Dispense #30, NO refills Omeprazole 40 mg, 1 tablet by mouth 1 time a day (8 AM), Dispense #30 NO refills 4). You must stop drinking. You stated that AA meetings are not your thing. You will increase your chances of being alcohol free by going to AA meetings. Please go. You can perform a simple Google search to find the nearest AA meeting to your residence. 5). Please take care and be well. Patient is clear for discharge per Dr. Cagle. Patient is not being started on any new medications and can restart his home medications. He has been given new prescriptions for his home medications which can add to his existing refills at [facility]. It is very important that you stop drinking and take your anti-seizure meds as prescribed. You are to take the Keppra twice a day and the Lamictal once a day. You are to call and book an appointment with your PMD Dr. Allan Mccoy in the next week. Please follow up with your neurologist, Dr. Duarte, in the next 7-10 days. Plan was discussed and agreed upon with patient. This is a summary of the hospital course. For more information, please refer to the EMR. - Date & Time of H&P Date of H&P: 01/31/18 Time of H&P: 07:50 Discharge Exam - Head Exam Head Exam: ATRAUMATIC, NORMOCEPHALIC - Eye Exam Eye Exam: EOMI, Normal appearance - ENT Exam ENT Exam: Mucous Membranes Moist - Respiratory Exam Respiratory Exam: Clear to PA & Lateral, NORMAL BREATHING PATTERN. absent: Rales, Rhonchi, Wheezes, Respiratory Distress - Cardiovascular Exam Cardiovascular Exam: REGULAR RHYTHM, +S1, +S2. absent: Gallop, Rubs, Systolic Murmur - GI/Abdominal Exam GI & Abdominal Exam: Normal Bowel Sounds, Organomegaly, Soft. absent: Guarding , Tenderness - Extremities Exam Extremities exam: normal capillary refill, pedal pulses present Additional comments: L arm IV to be removed prior to discharge - Neurological Exam Neurological exam: Alert, CN II-XII Intact, Normal Gait, Oriented x3, Reflexes Normal - Psychiatric Exam Psychiatric exam: Normal Affect, Normal Mood Discharge Plan - Discharge Medications Prescriptions: Isosorbide Mononitrate ER [Imdur ER] 30 mg PO DAILY #30 tab Lamotrigine [Lamictal Xr] 400 mg PO DAILY #30 tab.er.24 levETIRAcetam [Keppra] 1,500 mg PO BID #60 tab Lisinopril [Zestril] 10 mg PO DAILY #30 tablet Omeprazole 40 mg PO DAILY #30 capsule. Simvastatin [Zocor] 20 mg PO HS #30 tablet - Follow Up Plan Condition: GUARDED Disposition: HOME/ ROUTINE Additional Instructions: Patient is clear for discharge per Dr. Cagle. Patient is not being started on any new medications and can restart his home medications. He has been given new prescriptions for his home medications which can add to his existing refills at [facility]. It is very important that you stop drinking and take your anti-seizure meds as prescribed. You are to take the Keppra twice a day and the Lamictal once a day. You are to call and book an appointment with your PMD Dr. Allan Mccoy in the next week. Please follow up with your neurologist, Dr. Duarte, in the next 7-10 days. Plan was discussed and agreed upon with patient. Referrals: Allan Mccoy MD [Staff Provider] -
[2018-01-31 10:42] VITALS: BP 167/89
[2018-01-31 13:15] VITALS: TEMP 98.1
== END 2018-01-31 13:05 | disposition home or self-care (01) | DRG 101 ==
LOC: C.ER 17:16 → C.9E 18:49 → MERGE 18:49 → C.9E 23:33 → C.5S 23:33 → C.9I 23:34
PROVIDERS: ADMIT Family Medicine; ATTEND Family Medicine
DX: G40.909 Epilepsy, unspecified, not intractable, without status epilepticus (principal); E87.0 Hyperosmolality and hypernatremia; E87.2 Acidosis; D49.6 Neoplasm of unspecified behavior of brain; I10 Essential (primary) hypertension; E78.00 Pure hypercholesterolemia, unspecified; Z85.038 Personal history of other malignant neoplasm of large intestine; F10.10 Alcohol abuse, uncomplicated; I45.19 Other right bundle-branch block; Z91.14 Patient's other noncompliance with medication regimen; K21.9 Gastro-esophageal reflux disease without esophagitis; Z87.891 Personal history of nicotine dependence

== ENCOUNTER 2018-05-03 17:59 | Inpatient (IN) | payer BC, MEDICARE ==
[2018-05-03 17:59] VITALS: BMI 31.5
[2018-05-03] MEDS ORDERED: Sodium Chloride 0.9% 1,000 ML IV ONE (19:25)
[2018-05-03 19:35] LABS: BASO # 0.1 K/uL (0.0-0.2); BASO % 0.7 % (0.0-2.0); EOS % 0.1 % (0.0-4.0); HEMOGLOBIN 15.4 g/dL (12.0-18.0); LYMPH # 0.9 K/uL (1.0-4.3); LYMPH % 10.3 % (20.0-40.0); MEAN CELL VOLUME 91.6 fL (80.0-94.0); MEAN CORPUSCULAR HEMOGLOBIN 31.3 pg (27.0-31.0); MEAN CORPUSCULAR HGB CONC 34.1 g/dL (33.0-37.0); MEAN PLATELET VOLUME 8.7 fL (7.2-11.7); MONO # 0.7 K/uL (0.0-0.8); NEUT # 6.8 K/uL (1.8-7.0); NEUT % 80.9 % (50.0-75.0); RBC 4.92 Mil/uL (4.40-5.90); RED CELL DISTRIBUTION WIDTH 13.8 % (11.5-14.5); WHITE BLOOD COUNT 8.3 K/uL (4.8-10.8)
--- NOTE | 2018-05-03 19:40 | C.PDOC ---
History Of Present Illness 62 year old male presents to the ER stating he feels nervous. Patient has a Hx of brain tumor and seizures. Denies other complaints at this time. Chief Complaint (Nursing): Psychiatric Evaluation History Per: Patient History/Exam Limitations: no limitations Onset/Duration Of Symptoms: Hrs Current Symptoms Are (Timing): Still Present Suicide/Self Injury Attempted (Context): None Associated Symptoms: Other (Nervous) Recent travel outside of the [place]: No Past Medical History Reviewed: Historical Data, Nursing Documentation, Vital Signs Vital Signs: Last Vital Signs Temp 98.2 F 05/03/18 18:02 Pulse 103 H 05/03/18 18:02 Resp 18 05/03/18 18:02 BP 170/103 H 05/03/18 18:02 Pulse Ox 99 05/03/18 18:02 - Medical History PMH: HTN, Hypercholesterolemia, Hyperlipidemia, Seizures (last one 3 to 4 months ago) Denies: Anxiety, Chronic Kidney Disease Family History: States: Unknown Family Hx - Social History Hx Tobacco Use: No Hx Alcohol Use: Yes (0ccasional) Hx Substance Use: No - Immunization History Hx Tetanus Toxoid Vaccination: No Hx Influenza Vaccination: No Hx Pneumococcal Vaccination: No Review Of Systems Constitutional: Negative for: Fever, Chills Cardiovascular: Negative for: Chest Pain, Palpitations Respiratory: Negative for: Cough, Shortness of Breath Gastrointestinal: Negative for: Nausea, Vomiting Neurological: Negative for: Weakness, Numbness Psych: Positive for: Other (Nervous) Physical Exam - Physical Exam Appears: Non-toxic, Other (Crying in tears) Skin: Normal Color, Warm, Dry Head: Atraumatic, Normacephalic Eye(s): bilateral: Normal Inspection Oral Mucosa: Moist Neck: Normal, Supple Chest: Symmetrical, No Tenderness Cardiovascular: Rhythm Regular Respiratory: Normal Breath Sounds, No Rales, No Rhonchi, No Wheezing Gastrointestinal/Abdominal: Soft, No Tenderness Back: No CVA Tenderness Neurological/Psych: Oriented x3, Normal Speech ED Course And Treatment - Laboratory Results Result Diagrams: 05/03/18 19:36 05/03/18 20:29 ECG: Interpreted By Me, Viewed By Me ECG Rhythm: Sinus Rhythm ECG Interpretation: No Acute Changes, Abnormal Interpretation Of ECG: NSR,LVH by voltage criteria Rate From EC O2 Sat by Pulse Oximetry: 99 (Room air) Pulse Ox Interpretation: Normal Progress Note: CT head, EKG, and blood work ordered. Ativan and IV fluids admi nistered. Patient seen by crisis for depression, refused to be admitted, to be discharged with outpatient follow up. Disposition Discussed With : Houston Culver Counseled Patient/Family Regarding: Diagnosis - Disposition Referrals: at [facility] [Outside] Disposition: HOME/ ROUTINE Disposition Time: 04:17 Condition: STABLE Forms: [place] (Cambodian) - Clinical Impression Clinical Impression: Depression, Alcohol abuse - Scribe Statement The provider has reviewed the documentation as recorded by the Scribe Brian Mcnair All medical record entries made by the Scribe were at my direction and personally dictated by me. I have reviewed the chart and agree that the record accurately reflects my personal performance of the history, physical exam, medical decision making, and the department course for this patient. I have also personally directed, reviewed, and agree with the discharge instructions and disposition.
[2018-05-03] MEDS ORDERED: Sodium Chloride 0.9% 1,000 ML ONE (19:56)
[2018-05-03 20:46] LABS: ALB/GLOB RATIO 1.2 (1.0-2.1)
[2018-05-03 20:53] LABS: ALBUMIN 4.6 g/dL (3.5-5.0); ALT/SGPT 133 U/L (21-72); AST/SGOT 234 U/L (17-59); BLOOD UREA NITROGEN 15 mg/dL (9-20); CALCIUM 10.3 mg/dl (8.6-10.4); GFR NON-AFRICAN AMERICAN > 60
[2018-05-03 23:07] LABS: URINE BILIRUBIN NEGATIVE (NEGATIVE); URINE BLOOD 1+ (NEGATIVE); URINE CLARITY Clear (Clear); URINE COLOR Yellow (YELLOW); URINE GLUCOSE (UA) NORMAL (Normal); URINE LEUKOCYTE ESTERASE NEG Leu/uL (Negative); URINE PROTEIN 1+ mg/dL (NEGATIVE); URINE UROBILINOGEN NORMAL mg/dL (0.2-1.0)
[2018-05-03 23:47] LABS: BARBITURATES, UR NEGATIVE (NEGATIVE); BENZODIAZEPINES, UR NEGATIVE (NEGATIVE); OPIATES, UR NEGATIVE (NEGATIVE); PHENCYCLIDINE, UR NEGATIVE (NEGATIVE)
[2018-05-04 07:18] VITALS: O2SAT 98
--- NOTE | 2018-05-04 08:21 | PCM.BM ---
<Shirlene Maier - Last Filed: 05/04/18 08:18> Treatment Plan Problems - Problems identified on initial assessmt Depression Date Initiated: 05/04/18 Time Initiated: 08:19 Assessment reference: NA Status: Active Psychosis Date Initiated: 05/04/18 Time Initiated: 08:20 Assessment reference: NA Status: Active Treatment assets and liabiliti Patient Assests: cooperative, ADL independent, cognitively intact Patient Liabilities: relationship conflicts, substance abuse - Milieu Protocol Maintain good personal hygiene: daily Encourage regular showers Conduct patient checks and document Observation sheet: Q15 minutes Maintain personal safety: every shift Educate patient to report safety concerns to staff, every shift Monitor environment for contraband/sharps Medication safety: Monitor for expected outcome, potential side effects: every shift, Assess barriers to learning: every shift, Assess readiness for medication education: every shift <Duong Lewis - Last Filed: 05/05/18 11:33> - Diagnosis (1) Depression Status: Acute Interventions: 05/05/18 11:34 * Assess/adjust medications daily and /or as needed * See patient on an individual basis 7x/week to assess symptoms of depression * Monitor for side effects & effectiveness of medications * (2) Alcohol abuse Status: Acute Interventions: 05/05/18 11:34 * Assess 7x/week regarding severity of withdrawal * Educate regarding risks, benefits, side effects and alternatives of medications * Use Motivational Interviewing for abstinence * Use CBT for relapse prevention * Medication management for withdrawal symptoms * Encourage medication assisted treatment * <Ban Welch - Last Filed: 05/05/18 12:41> Family Contact Family involvement: Family/SO is involved Family contact: Patient agrees to contact Family contact name: Thalia Schwab-spouse Family contacted how many times per week?: 1 - Goals for Treatment Patient goals for treatment: "I don't know." Discharge/Continuing Care - Education Needs Education Needs: Patient Medication, Patient Coping Skills - Discharge Discharge Criteria: Tolerates medication w/o severe side effects, Reduction of target symptoms Discharge to:: Home, With Family - Treatment Team Participation Discussed with Family/SO: No Was Patient/Family/SO present at Treatment Team Meeting: Yes
--- NOTE | 2018-05-04 11:14 | CARD ---
APPROVED REPORT Date of service: 05/04/2018 EKG Measurement Heart [id number] <Conclusion> Normal sinus rhythm with sinus arrhythmia Voltage criteria for left ventricular hypertrophy Abnormal ECG
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
[2018-05-04] MEDS ORDERED: Pneumococcal 23-Valent Vaccine IM ONE (11:45)
[2018-05-04] MEDS: Multiple Vitamins Tab PO SCH (11:50)
--- NOTE | 2018-05-04 13:19 | CT ---
Date of service: 05/03/2018 PROCEDURE: CT HEAD WITHOUT CONTRAST. HISTORY: Headache . COMPARISON: None available. TECHNIQUE: Axial computed tomography images were obtained through the head/brain without intravenous contrast. Radiation dose: Total exam DLP = 1080.76 mGy-cm. This CT exam was performed using one or more of the following dose reduction techniques: Automated exposure control, adjustment of the mA and/or kV according to patient size, and/or use of iterative reconstruction technique. FINDINGS: HEMORRHAGE: No intracranial hemorrhage. BRAIN: Redemonstrated is a localized area of partially cystic encephalomalacia right posterior superior parietal lobe subjacent to a right posterior superior parietal craniotomy defect. Clinical correlation with surgical history recommended. Minor chronic periventricular white matter ischemic changes seen extending peripherally into the deep white matter both cerebral hemispheres. No obvious parenchymal nor extra-axial mass or collection identified on this noncontrast exam. Mild generalized volume loss. VENTRICLES: No obstructive hydrocephalus. CALVARIUM: Redemonstrated is a right posterior superior parietal craniotomy defect.. PARANASAL SINUSES: Unremarkable as visualized. No significant inflammatory changes. MASTOID AIR CELLS: Unremarkable as visualized. No inflammatory changes. OTHER FINDINGS: Note made of surgical clips and/or possible embolization coils within the region of the anterior aspect right pterygopalatine fissure. IMPRESSION: No acute intracranial hemorrhage. Stable appearing right posterior superior parietal partially cystic encephalomalacia changes subjacent to a right posterior superior parietal craniotomy defect. Clinical correlation with surgical history recommended. The
[2018-05-05] MEDS: Multiple Vitamins Tab PO SCH (09:04)
--- NOTE | 2018-05-06 02:03 | PCM.PYCHPN ---
Psychiatric Progress Note - Psychiatric Progress Note Patient seen today, length of contact: 15 min Patient Chief Complaint: I was feeling depressed Medication Change: Yes Medical Record Reviewed: Yes Mental Status Examination - Cognitive Function Orientation: Person, Place, Situation, Time Memory: Intact Attention: WNL Concentration: Poor Association: WNL Fund of Knowledge: Poor - Mood Mood: Depressed, Anxious - Affect Affect: Constricted, Depressed - Speech Speech: Soft - Formal Thought Process Formal Thought Process: Hallucinations, Delusions, Paranoia - Suicidal Ideation Suicidal Ideation: No - Homicidal Ideation Homicidal Ideation: No Goal/Treatment Plan - Goal/Treatment Plan Need for Continued Stay: Severe functional impairment Progress Toward Problem(s) and Goals/Treatment Plan: Major depressive disorder recurrent severe with psychotic features Alcohol use disorder severe Alcohol withdrawal CBT Psychoeducation Supportive therapy and group therapy Keppra 1500 mg p.o. twice daily Lamictal 200 mg p.o. nightly Trazodone 50 mg p.o. nightly Hydroxyzine 25 mg p.o. every 6 hours as needed - Smoking Cessation Smoking Cessation Initiated: No
[2018-05-06] MEDS: Pantoprazole 40 mg EC Tab PO SCH (09:23)
[2018-05-06] MEDS: Multiple Vitamins Tab PO SCH (09:26)
--- NOTE | 2018-05-06 13:16 | PCM.PYCHPN ---
Psychiatric Progress Note - Psychiatric Progress Note Patient seen today, length of contact: 16 min Patient Chief Complaint: "Better" Problems Identified/Issues Discussed: The pt is seen, chart reviewed, case discussed with staff. The pt is compliant with medications and reports no side-effects. Symptoms are improving but needs more time to stabilize. Pt attends groups and activities. Support given, psycho-education provided. After care discussed. Medication Change: No Medical Record Reviewed: Yes Mental Status Examination - Cognitive Function Orientation: Person, Place, Situation, Time Memory: Intact Attention: WNL Concentration: Poor Association: WNL Fund of Knowledge: Poor - Mood Mood: Depressed, Anxious - Affect Affect: Constricted, Depressed - Speech Speech: Soft - Formal Thought Process Formal Thought Process: Paranoia - Suicidal Ideation Suicidal Ideation: No - Homicidal Ideation Homicidal Ideation: No Goal/Treatment Plan - Goal/Treatment Plan Need for Continued Stay: Severe depression anxiety, Discharge may exacerbated symptoms, Severe functional impairment Progress Toward Problem(s) and Goals/Treatment Plan: Continue medications Support and psychoeducation daily Attend groups and activities daily After care planning by SHAQUILLE
[2018-05-07] MEDS: Multiple Vitamins Tab PO SCH (09:15)
[2018-05-07] MEDS: Pantoprazole 40 mg EC Tab PO SCH (09:15)
[2018-05-08 06:32] VITALS: BP 122/72; PULSE 60; RESP 18; TEMP 97.5
[2018-05-08] MEDS: Pantoprazole 40 mg EC Tab PO SCH (09:13)
[2018-05-08] MEDS: Multiple Vitamins Tab PO SCH (09:13)
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
== END 2018-05-08 12:25 | disposition home or self-care (01) | DRG 885 ==
LOC: C.ER 17:59 → C.5E 05-04 05:33
PROVIDERS: ADMIT Psychiatry & Neurology Psychiatry; ATTEND Psychiatry & Neurology Psychiatry
PROC: GZ58ZZZ Individual Psychotherapy, Cognitive-Behavioral (ICD-10-PCS; principal; 2018-05-04)
PROC: GZ56ZZZ Individual Psychotherapy, Supportive (ICD-10-PCS; 2018-05-04)
PROC: GZHZZZZ Group Psychotherapy (ICD-10-PCS; 2018-05-04)
DX: F33.3 Major depressive disorder, recurrent, severe with psychotic symptoms (principal); F10.239 Alcohol dependence with withdrawal, unspecified; E78.00 Pure hypercholesterolemia, unspecified; E78.5 Hyperlipidemia, unspecified; I10 Essential (primary) hypertension; D49.6 Neoplasm of unspecified behavior of brain; R56.9 Unspecified convulsions; Z59.0 Homelessness

== ENCOUNTER 2018-07-20 17:33 | Emergency (ER) | payer MEDICARE, BC ==
[2018-07-20 17:33] VITALS: BMI 31.5
[2018-07-20 17:41] VITALS: BP 132/78; PULSE 74; RESP 18; TEMP 98.4; O2SAT 96
--- NOTE | 2018-07-20 18:59 | C.PDOC ---
History Of Present Illness Patient is a 63 year old male who presents to the ED for evaluation of tongue swelling and painful swallowing that began today after he bit his tongue 1 day ago. Patient denies any fever or chills. Time Seen by Provider: 07/20/18 17:41 Chief Complaint (Nursing): ENT Problem History Per: Patient History/Exam Limitations: None Onset/Duration Of Symptoms: Days (1) Current Symptoms Are (Timing): Still Present Past Medical History Reviewed: Historical Data, Nursing Documentation, Vital Signs Vital Signs: Last Vital Signs Temp 98.4 F 07/20/18 17:34 Pulse 74 07/20/18 17:34 Resp 18 07/20/18 17:34 BP 132/78 07/20/18 17:34 Pulse Ox 96 07/20/18 17:34 - Medical History PMH: HTN, Hypercholesterolemia, Hyperlipidemia, Seizures (Last one was 05/01/18) Denies: Anxiety, Diabetes, Hepatitis, HIV, Chronic Kidney Disease, Sexually Transmitted Disease Surgical History: No Surg Hx - [facility] GROUP PSYCHOTHERAPY (05/04/18) INDIVIDUAL PSYCHOTHERAPY, COGNITIVE-BEHAVIORAL (05/04/18) INDIVIDUAL PSYCHOTHERAPY, SUPPORTIVE (05/04/18) Family History: States: Unknown Family Hx - Social History Hx Tobacco Use: No Hx Alcohol Use: Yes (H/o sezeiures.) Hx Substance Use: No - Immunization History Hx Tetanus Toxoid Vaccination: No Hx Influenza Vaccination: No Hx Pneumococcal Vaccination: No Review Of Systems Constitutional: Negative for: Fever, Chills ENT: Positive for: Other (tongue swelling and painful swallowing\) Physical Exam - Physical Exam Appears: Well, Non-toxic, No Acute Distress, Other (resting comfortably) Head: Normacephalic, Other (old surgical scars with indentation) Tongue: No Swelling, Bite (bite samia on left underside) Throat: Other (tonsils swollen and erythematous, almost touching, no exudates. tender right submandibular gland) Cardiovascular: Rhythm Regular Respiratory: Normal Breath Sounds, No Rales, No Rhonchi, No Wheezing Neurological/Psych: Oriented x3, Normal Speech, Normal Cognition ED Course And Treatment O2 Sat by Pulse Oximetry: 96 (on RA) Pulse Ox Interpretation: Normal Medical Decision Making Medical Decision Making: Plan: Tylenol 650mg PO Serology Rapid Strep Throat Culture 1855 pt with neg rapid step[ given enlarged tonsils,will treat with antilbitcs. d/c home. f/u pmd Disposition Counseled Patient/Family Regarding: Studies Performed, Diagnosis, Need For Followup, Rx Given - Disposition Referrals: Allan Mccoy MD [Staff Provider] - Disposition: HOME/ ROUTINE Disposition Time: 18:58 Condition: GOOD Additional Instructions: Rinse mouth with warm salty water several times a day. Take antibiotics as prescribed until done/. Follow up with Dr Mccoy in a few days. Return to ER for any worsening symptoms. Medications sent to [facility] Prescriptions: Amoxicillin [Amoxil 500 mg Cap] 500 mg PO BID #20 cap Instructions: Sore Throat, Adult (DC) Forms: [facility] (Slovenian), General Discharge Instructions - Clinical Impression Clinical Impression: Pharyngitis, Open wound of tongue due to bite - PA / BAR CAPTAIN / Resident Statement MD/DO has examined the patient and agrees with the treatment plan. - Scribe Statement The provider has reviewed the documentation as recorded by the Roel Nam All medical record entries made by the Onelibdeirdre were at my direction and personally dictated by me. I have reviewed the chart and agree that the record accurately reflects my personal performance of the history, physical exam, medical decision making, and the department course for this patient. I have also personally directed, reviewed, and agree with the discharge instructions and disposition.
== END 2018-07-20 19:08 | disposition home or self-care (01) ==
LOC: C.ER 17:33
DX: J02.9 Acute pharyngitis, unspecified (principal); S01.552A Open bite of oral cavity, initial encounter; X58.XXXA Exposure to other specified factors, initial encounter

== ENCOUNTER 2018-07-25 11:56 | Inpatient (IN) | payer BC, MEDICARE ==
[2018-07-25 11:58] VITALS: BMI 33.5
[2018-07-25 12:12] LABS: BASO # 0.1 K/uL (0.0-0.2); BASO % 0.9 % (0.0-2.0); EOS # 0.2 K/uL (0.0-0.7); EOS % 3.6 % (0.0-4.0); HEMOGLOBIN 16.2 g/dL (12.0-18.0); LYMPH # 1.4 K/uL (1.0-4.3); LYMPH % 23.8 % (20.0-40.0); MEAN CELL VOLUME 92.7 fL (80.0-94.0); MEAN CORPUSCULAR HEMOGLOBIN 30.8 pg (27.0-31.0); MEAN CORPUSCULAR HGB CONC 33.3 g/dL (33.0-37.0); MEAN PLATELET VOLUME 8.4 fL (7.2-11.7); MONO # 0.6 K/uL (0.0-0.8); MONO % 10.6 % (0.0-10.0); NEUT # 3.6 K/uL (1.8-7.0); NEUT % 61.1 % (50.0-75.0); RBC 5.26 Mil/uL (4.40-5.90); WHITE BLOOD COUNT 5.8 K/uL (4.8-10.8)
--- NOTE | 2018-07-25 12:15 | C.PDOC ---
History Of Present Illness 63 y/o male, w/ pmhx of HTN, HLD, brain mass resection, epilepsy (on Keppra), colon cancer, brought to ER by ambulance for evaluation of left sided weakness vs possible seizure. Per EMS, patient was talking normally upon arrival to his home. EMS notes that patient soon became intermittently non-verbal and he had empty stare into the distance. EMS reports that they noticed patient has mild LUE and LLE weakness. They did not note any signs of trauma. They state that patient normally takes Keppra for seizures. Of note, Code Stroke was called at 11:57 AM in the ER. Time Seen by Provider: 07/25/18 12:00 History Per: EMS History/Exam Limitations: clinical condition Onset/Duration Of Symptoms: Hrs Current Symptoms Are (Timing): Still Present Severity: Moderate Past Medical History Reviewed: Historical Data, Nursing Documentation, Vital Signs - Medical History PMH: HTN, Hypercholesterolemia, Hyperlipidemia, Seizures (Last one was 05/01/18) Denies: Anxiety, Diabetes, Hepatitis, HIV, Chronic Kidney Disease, Sexually Transmitted Disease Other Surgeries: Hx of surgeries - [facility] GROUP PSYCHOTHERAPY (05/04/18) INDIVIDUAL PSYCHOTHERAPY, COGNITIVE-BEHAVIORAL (05/04/18) INDIVIDUAL PSYCHOTHERAPY, SUPPORTIVE (05/04/18) Family History: States: No Known Family Hx - Social History Hx Tobacco Use: No Hx Alcohol Use: Yes (H/o sezeiures.) Hx Substance Use: No - Immunization History Hx Tetanus Toxoid Vaccination: No Hx Influenza Vaccination: No Hx Pneumococcal Vaccination: No Review Of Systems Review Of Systems: ROS cannot be obtained secondary to pt's inabilty to answer questions. Physical Exam - Physical Exam Appears: Non-toxic, No Acute Distress Skin: Normal Color, Warm Head: Atraumatic, Normacephalic Eye(s): bilateral: Normal Inspection, PERRL, EOMI Ear(s): Bilateral: Normal Nose: Normal Oral Mucosa: Moist Tongue: Normal Appearing Lips: Normal Appearing Throat: Normal, No Erythema, No Exudate Neck: Normal, Normal ROM, Supple, Other (no meningeal signs) Lymphatic: Normal Exam Chest: Symmetrical Cardiovascular: Rhythm Regular Respiratory: Normal Breath Sounds, No Decreased Breath Sounds, No Accessory Muscle Use, No Rales, No Rhonchi, No Stridor, No Wheezing Gastrointestinal/Abdominal: Normal Exam, Soft, No Tenderness, No Organomegaly, No Mass, No Distention, No Guarding, No Rebound Back: Normal Inspection, No CVA Tenderness, No Vertebral Tenderness Extremity: Normal ROM, Other (intermittent 5/5 followed by 1/5 strength depending on mental status of pt) Extremity: Bilateral: Atraumatic Pulses: Left Radial: Normal, Right Radial: Normal, Left Dorsalis Pedis: Normal, Right Dorsalis Pedis: Normal Neurological/Psych: Oriented x3, No Normal Speech, Normal Cognition, No Cerebellar Signs, Normal Motor, Other (intermittently oriented, w/ intermittent normal neuro exam except some mildly slurred speech) Other Neurological Findings: No Tongue Deviation ED Course And Treatment - Laboratory Results Result Diagrams: 07/25/18 12:04 07/25/18 12:04 ECG: Interpreted By Me, Viewed By Me ECG Rhythm: Sinus Bradycardia Rate From EC - Other Rad CXR X-Ray: Viewed By Me, Read By Radiologist Interpretation: Date of service: 07/25/2018. HISTORY: Code Stroke. COMPARISON: 01/29/2018. FINDINGS: LUNGS: No consolidation. Inspiration is shallow. Overall bronchovascular markings accentuated-believed to crowding/hypoventilation and large body habitus. Probable summation of soft tissues over the left costophrenic angle. PLEURA: No significant pleural effusion identified, no pneumothorax apparent. CARDIOVASCULAR: No aortic atherosclerotic calcification present. Mild cardiomegaly suspect even allowing for shallow inspiration and large body habitus and projection. No significant appearing pulmonary venous congestion. Degrees of pulmonary venous congestion not excluded. OSSEOUS STRUCTURES: Thoracic spondylosis. VISUALIZED UPPER ABDOMEN: Smaller metallic like density projecting over the right hemidiaphragm in faintly perceived below the right hemidiaphragm more clearly depicted on the prior study. No change here noted. OTHER FINDINGS: None. IMPRESSION: No interval pathology noted. No definitive infiltrate. Mild cardiomegaly present. No significant appearing pulmonary venous congestion. Minimal degrees of pulmonary venous congestion not excluded. - CT Scan/US CT-Head Other Rad Studies (CT/US): Read By Radiologist, Radiology Report Reviewed CT/US Interpretation: Date of service: 07/25/2018. PROCEDURE: CT HEAD WITHOUT CONTRAST. HISTORY: Code Stroke. History of benign tumor resection. Seizures.. COMPARISON: No prior study available for comparison. TECHNIQUE: Axial computed tomography images were obtained through the head/brain without intravenous contrast. Radiation dose: Total exam DLP = 1397.6 mGy-cm. This CT exam was performed using one or more of the following dose reduction techniques: Automated exposure control, adjustment of the mA and/or kV according to patient size, and/or use of iterative reconstruction technique. FINDINGS: HEMORRHAGE: No acute parenchymal, subarachnoid or extra-axial hemorrhage. BRAIN: There is a localize which shaped area encephalomalacia in the right posterior parietal region subjacent to a craniotomy defect consistent with this patient's history of prior benign tumor resection. Note there appears to be residual extra-axial mass possibly representing meningioma which measures approximately 16.7 x 10 mm. Follow-up pre and post-contrast MRI of the brain could be performed for further evaluation. Suspect minor chronic periventricular white matter ischemic changes. VENTRICLES: No obstructive hydrocephalus although there is slight dilatation of the right atrium felt to be on an ex vacuo basis. CALVARIUM: Calvarium otherwise intact. PARANASAL SINUSES: Mild mucosal thickening seen within both maxillary antra left greater than right as well as multiple ethmoid air cells extending superiorly into the frontal sinus. In addition, there are postsurgical changes seen abutting the posterolateral wall right maxillary antrum along the lateral margin of the right pterygopalatine fossa. Clinical correlation. MASTOID AIR CELLS: Unremarkable as visualized. No inflammatory changes. OTHER FINDINGS: None. IMPRESSION: No acute intracranial hemorrhage. Wedge-shaped area encephalomalacia right posterior parietal region subjacent to a old craniotomy defect. Suspect residual meningioma along the right lateral margin of the surgical cavity subjacent to the craniotomy defect along its lateral border... Note that the possibility of a small hyperacute infarct not e xcluded. Note these findings were discussed with Dr. Otero at approximately 12:32 p.m. with written down and read back verification CTA-Head/Neck Other Rad Studies (CT/US): Read By Radiologist, Radiology Report Reviewed CT/US Interpretation: Date of service: 07/25/2018. PROCEDURE: CT Angiography of the neck and brain. HISTORY: Left-sided weakness, hx of seizure/brain tumor resect. COMPARISON: Comparison made with concurrent noncontrast CT scan of the brain. TECHNIQUE: Contiguous axial images of the neck and brain were obtained from the level of the vertex of the skull to the superior mediastinum in the arteriographic phase of enhancement. Coronal and sagittal reformats or also generated. IV contrast dose: 100 cc Visipaque 320 contrast material. Radiation dose: Total exam DLP = 693.8 mGy-cm. This CT exam was performed using one or more of the following dose reduction techniques: Automated exposure control, adjustment of the mA and/or kV according to patient size, and/or use of iterative reconstruction technique. FINDINGS: Minor aortic atherosclerotic calcified plaque changes seen along the the distal aspect of the aortic arch and proximal aspect of the descending thoracic aorta. The origins of the great vessels are widely patent. Both common carotid arteries included carotid bifurcations are also patent without evidence of occlusion dissection or significant stenosis despite tiny calcified plaque along the medial aspect left carotid bifurcation and proximal left internal carotid artery.. The internal ca rotid arteries including the petrous cavernous and supraclinoid segments are patent.. Smiled calcified plaque seen along along the right cavernous carotid artery which results in mild narrowing. The vertebral arteries are patent and relatively symmetric throughout. Basilar artery is also patent. There is atresia of the right A1 segment. The both A2 segments are fed from the left A1 segment. The distal branches of the anterior middle and posterior cerebral arteries are also patent. No definitive evidence of large aneurysm nor vascular malformation. OTHER FINDINGS: Note made of several peripherally enhancing semi lunar shaped extra-axial densities subjacent to the craniotomy defect which may represent residual- recurrent tumor likely meningioma. Follow-up pre and post- contrast MRI of the brain is recommended for further evaluation. IMPRESSION: There is no evidence of occlusion significant stenosis or dissection. There atria of the right A1 segment with both A2 segments fed from the left A1. Note made of several peripherally enhancing semi lunar shaped extra-axial densities subjacent to the craniotomy defect which may represent residual- recurrent tumor likely meningioma. Follow-up pre and post-contrast MRI of the brain is recommended for further evaluation. NIHSS Stroke Scale - Date/Time Evaluation Performed Time Performed: 12:07 When Was NIHSS Performed: Baseline - How Severe is the Stroke Level of Consciousness: 0=Alert LOC to Questions: 0=Both comments correct LOC to commands: 0=Obeys both correctly Best Gaze: 1=Partial gaze palsy Visual: 0=No visual loss Facial: 1=Minor asymmetry Motor Arm - Left: 0=No drift Motor Arm - Right: 0=No drift Motor Leg - Left: 0=No drift Motor Leg - Right: 0=No drift Limb Ataxia: 0=Absent Sensory: 1=Mild to moderate loss Best Language: 0=No aphasia Dysarthia: 1=Mild to moderate slurring Extinction & Inattention (Neglect): 0=Normal, no object Score: 4 rTPA Inclusion/Exclusion - Refusal of Treatment Patient Refused Treatment: No - Inclusion Criteria for Altepase Patient is 18 years or Older: Yes The Clinical Diagnosis of Ischemic Stroke That is Causing a Potentially Disabling Neurological Deficit: No Time of Onset is Well Established to be Less Than 270 Minute Before Treatment Would Begin: Yes Risk/Benefit Discussed With Patient/Family Member Present: No Medical Decision Making Medical Decision Makin63 y/o male,w/pmhx of HTN, hypercholestereloremia, brain mass resection, epilepsy (on Keppra), colon cancer, brought to ER by ambulance for evaluation of left sided weakness vs possible seizure. On exam pt intermittently responsive with intermittent L sided weakness. GCS 15 when fully responsive, GCS of 9 when non responsive. L sided weakness when non-responsive and with non-attentive ga ze. No tonic clonic activity noted or tongue biting / enuresis. No meningeal signs. Plan: --Labs --ECG --CXR --CT-Head --CTA-Head & Neck EKG Sinus Bradycardia 57 bpm no STEMI 1414 NIHSS 4 Appreciate analiliat w/ Dr. Parham: MRI BRAIN, Keppra 1500mg No stroke noted on imaging intermittently responsive hx of aura prior to EMS arrival pt has been missing his dosage of keppra this afternoon per pt PAged Dr. Hairston for admission pt in [facility] 1500 accepted by arlette pt in [facility] NIHSS now 0 Disposition - Disposition Disposition: HOSPITALIZED Disposition Time: 14:18 Condition: STABLE - Clinical Impression Clinical Impression: Seizure, Seizure-like activity - Scribe Statement The provider has reviewed the documentation as recorded by the Scribe Lyssa Euceda Provider Attestation: All medical record entries made by the Scribe were at my direction and personally dictated by me. I have reviewed the chart and agree that the record accurately reflects my personal performance of the history, physical exam, medical decision making, and the department course for this patient. I have also personally directed, reviewed, and agree with the discharge instructions and disposition.
[2018-07-25 12:21] LABS: INR 1.1; PROTHROMBIN TIME 11.7 SECONDS (9.7-12.2)
[2018-07-25] MEDS ORDERED: Iodixanol 320 MG/ML 100 ML BOTTLE IV ONE (12:22)
[2018-07-25 12:24] LABS: ALB/GLOB RATIO 1.2 (1.0-2.1); ALBUMIN 4.8 g/dL (3.5-5.0); ALT/SGPT 65 U/L (21-72); AST/SGOT 76 U/L (17-59); BLOOD UREA NITROGEN 13 mg/dL (9-20); CALCIUM 9.6 mg/dl (8.6-10.4); GFR NON-AFRICAN AMERICAN > 60; HDL CHOLESTEROL 53 mg/dL (30-70)
[2018-07-25 12:34] LABS: LDL CHOLESTEROL 113 mg/dL (0-129)
--- NOTE | 2018-07-25 12:47 | CT ---
Date of service: 07/25/2018 PROCEDURE: CT HEAD WITHOUT CONTRAST. HISTORY: Code Stroke. History of benign tumor resection. Seizures.. COMPARISON: No prior study available for comparison. TECHNIQUE: Axial computed tomography images were obtained through the head/brain without intravenous contrast. Radiation dose: Total exam DLP = 1397.6 mGy-cm. This CT exam was performed using one or more of the following dose reduction techniques: Automated exposure control, adjustment of the mA and/or kV according to patient size, and/or use of iterative reconstruction technique. FINDINGS: HEMORRHAGE: No acute parenchymal, subarachnoid or extra-axial hemorrhage. BRAIN: There is a localize which shaped area encephalomalacia in the right posterior parietal region subjacent to a craniotomy defect consistent with this patient's history of prior benign tumor resection. Note there appears to be residual extra-axial mass possibly representing meningioma which measures approximately 16.7 x 10 mm. Follow-up pre and post-contrast MRI of the brain could be performed for further evaluation. Suspect minor chronic periventricular white matter ischemic changes VENTRICLES: No obstructive hydrocephalus although there is slight dilatation of the right atrium felt to be on an ex vacuo basis CALVARIUM: Calvarium otherwise intact PARANASAL SINUSES: Mild mucosal thickening seen within both maxillary antra left greater than right as well as multiple ethmoid air cells extending superiorly into the frontal sinus. In addition, there are postsurgical changes seen abutting the posterolateral wall right maxillary antrum along the lateral margin of the right pterygopalatine fossa. Clinical correlation MASTOID AIR CELLS: Unremarkable as visualized. No inflammatory changes. OTHER FINDINGS: None. IMPRESSION: No acute intracranial hemorrhage. Wedge-shaped area encephalomalacia right posterior parietal region subjacent to a old craniotomy defect. Suspect residual meningioma along the right lateral margin of the surgical cavity subjacent to the craniotomy defect along its lateral border... Note that the possibility of a small hyperacute infarct not excluded. Note these findings were discussed with Dr. Otero at approximately 12:32 p.m. with written down and read back verification
[2018-07-25] MEDS ORDERED: Naloxone 0.4 mg/ml Inj (Adult) ONE (13:05)
--- NOTE | 2018-07-25 13:11 | CT ---
Date of service: 07/25/2018 PROCEDURE: CT Angiography of the neck and brain HISTORY: Left-sided weakness, hx of seizure/brain tumor resect COMPARISON: Comparison made with concurrent noncontrast CT scan of the brain TECHNIQUE: Contiguous axial images of the neck and brain were obtained from the level of the vertex of the skull to the superior mediastinum in the arteriographic phase of enhancement. Coronal and sagittal reformats or also generated. IV contrast dose: 100 cc Visipaque 320 contrast material. Radiation dose: Total exam DLP = 693.8 mGy-cm. This CT exam was performed using one or more of the following dose reduction techniques: Automated exposure control, adjustment of the mA and/or kV according to patient size, and/or use of iterative reconstruction technique. FINDINGS: Minor aortic atherosclerotic calcified plaque changes seen along the the distal aspect of the aortic arch and proximal aspect of the descending thoracic aorta. The origins of the great vessels are widely patent. Both common carotid arteries included carotid bifurcations are also patent without evidence of occlusion dissection or significant stenosis despite tiny calcified plaque along the medial aspect left carotid bifurcation and proximal left internal carotid artery.. The internal carotid arteries including the petrous cavernous and supraclinoid segments are patent.. Smiled calcified plaque seen along along the right cavernous carotid artery which results in mild narrowing. The vertebral arteries are patent and relatively symmetric throughout. Basilar artery is also patent. There is atresia of the right A1 segment. The both A2 segments are fed from the left A1 segment. The distal branches of the anterior middle and posterior cerebral arteries are also patent. No definitive evidence of large aneurysm nor vascular malformation. OTHER FINDINGS: Note made of several peripherally enhancing semi lunar shaped extra-axial densities subjacent to the craniotomy defect which may represent residual- recurrent tumor likely meningioma. Follow-up pre and post-contrast MRI of the brain is recommended for further evaluation. IMPRESSION: There is no evidence of occlusion significant stenosis or dissection. There atria of the right A1 segment with both A2 segments fed from the left A1. Note made of several peripherally enhancing semi lunar shaped extra-axial densities subjacent to the craniotomy defect which may represent residual- recurrent tumor likely meningioma. Follow-up pre and post-contrast MRI of the brain is recommended for further evaluation.
--- NOTE | 2018-07-25 13:14 | RAD ---
Date of service: 07/25/2018 HISTORY: Code Stroke COMPARISON: 01/29/2018 FINDINGS: LUNGS: No consolidation. Inspiration is shallow. Overall bronchovascular markings accentuated-believed to crowding/hypoventilation and large body habitus. Probable summation of soft tissues over the left costophrenic angle. PLEURA: No significant pleural effusion identified, no pneumothorax apparent. CARDIOVASCULAR: No aortic atherosclerotic calcification present. Mild cardiomegaly suspect even allowing for shallow inspiration and large body habitus and projection. No significant appearing pulmonary venous congestion. Degrees of pulmonary venous congestion not excluded. OSSEOUS STRUCTURES: Thoracic spondylosis. VISUALIZED UPPER ABDOMEN: Smaller metallic like density projecting over the right hemidiaphragm in faintly perceived below the right hemidiaphragm more clearly depicted on the prior study. No change here noted. OTHER FINDINGS: None. IMPRESSION: No interval pathology noted. No definitive infiltrate. Mild cardiomegaly present. No significant appearing pulmonary venous congestion. Minimal degrees of pulmonary venous congestion not excluded.
[2018-07-25] MEDS ORDERED: Naloxone 0.4 mg/ml Inj (Adult) IVP ONE (13:22)
[2018-07-25] MEDS ORDERED: levETIRAcetam 1,500 MG in Sodium Chloride 0.9% 100 ML IVPB ONE ×2 (13:43→14:27)
[2018-07-25] MEDS ORDERED: levETIRAcetam 1,500 MG in Sodium Chloride 0.9% 100 ML IVPB SCH (13:45)
--- NOTE | 2018-07-25 14:20 | CP.PCM.CON ---
<Melania Coreas P - Last Filed: 07/25/18 19:31> History of Present Illness - History of Present Illness History of Present Illness: Consult note for Dr. Parham. 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 Patient states that he had his family call an ambulance because he felt a seizure coming on. When BLS arrived, patient was noticed to have LUE weakness and L facial droop. Code stroke was called in the ED. At the time of my exam, patient appears to be postictal. He is complaining of nausea. Patient denies focal weakness, numbness, tingling, and blurry vision. CT head: No acute intracranial hemorrhage. Encephalomalacia to right posterior parietal region subjacent to a old craniotomy defect. Suspect residual meningioma along the right lateral margin of the surgical cavity subjacent to the craniotomy defect along its lateral border. CTA head/neck: There is no evidence of occlusion significant stenosis or dissection. Note made of several peripherally enhancing semi lunar shaped extra- axial densities subjacent to the craniotomy defect which may represent residual- recurrent tumor likely meningioma. Follow-up pre and post-contrast MRI of the brain is recommended for further evaluation. 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, HTN, and HLD PSHx: brain mass resection 2012 Allg: NKDA, seafood Meds: Keppra 1500 BID, Lamictal XR 400mg QPM, see medication list for full list Social: denies tobacco and illicit drugs, drinks 3-5 beers daily, last drank last night Family hx: Mother and sister- diabetes and "heart condition" Review of Systems - Review of Systems All systems: reviewed and no additional remarkable complaints except (as per HPI) Past Patient History - Infectious Disease Hx of Infectious Diseases: None - Past Medical History & Family History Past Medical History?: Yes - Past Social History Smoking Status: Never Smoked - CARDIAC Hx Hypercholesterolemia: Yes Hx Hypertension: Yes - PULMONARY Hx Tuberculosis: No - NEUROLOGICAL Hx Seizures: Yes (Last one was 05/01/18) - HEENT Hx HEENT Problems: No - RENAL Hx Chronic Kidney Disease: No - ENDOCRINE/METABOLIC Hx Endocrine Disorders: No - HEMATOLOGICAL/ONCOLOGICAL Hx Human Immunodeficiency Virus (HIV): No - INTEGUMENTARY Hx Dermatological Problems: No - MUSCULOSKELETAL/RHEUMATOLOGICAL Hx Falls: No - GASTROINTESTINAL Hx Gastrointestinal Disorders: Yes Hx Bowel Surgery: Yes (sigmoid colectomy) - GENITOURINARY/GYNECOLOGICAL Hx Sexually Transmitted Disorders: No - PSYCHIATRIC Hx Anxiety: No Hx Substance Use: No - SURGICAL HISTORY Hx Surgeries: Yes Other/Comment: Sigmoid Colectomy - ANESTHESIA Hx Anesthesia: Yes Hx Anesthesia Reactions: No Hx Malignant Hyperthermia: No Meds Allergies/Adverse Reactions: Allergies Allergy/AdvReac Type Severity Reaction Status Date / Time seafood Allergy SHORTNESS Uncoded 01/02/18 16:59 OF BREATH Physical Exam - Constitutional Appears: Non-toxic, No Acute Distress - Head Exam Head Exam: ATRAUMATIC, NORMOCEPHALIC - Eye Exam Eye Exam: EOMI Additional comments: Pupils 4mm, not reactive to light - ENT Exam ENT Exam: Mucous Membranes Moist - Neck Exam Neck exam: Positive for: Full Rom, Normal Inspection - Respiratory Exam Respiratory Exam: Clear to Auscultation Bilateral, NORMAL BREATHING PATTERN. absent: Rales, Rhonchi, Wheezes - Cardiovascular Exam Cardiovascular Exam: Bradycardia, +S1, +S2 - GI/Abdominal Exam GI & Abdominal Exam: Normal Bowel Sounds, Soft. absent: Tenderness - Extremities Exam Extremities exam: Positive for: normal inspection. Negative for: tenderness - Neurological Exam Additional comments: Awake, oriented to person, place and time, however confused intermittently and at times noted to stare into the distance, but easily redirected. Follows most commands. Minimal L facial droop. Difficulty focusing on horizontal gaze. Vision intact. Speech is fluent. Moves all extremities. - Skin Skin Exam: Dry, Intact, Normal Color, Warm Results - Vital Signs Recent Vital Signs: Last Vital Signs Temp 98.7 F 07/25/18 12:00 Pulse 59 L 07/25/18 13:15 Resp 12 07/25/18 13:15 BP 210/108 H 07/25/18 13:15 Pulse Ox 97 07/25/18 13:15 - Labs Result Diagrams: 07/25/18 12:04 07/25/18 12:04 Labs: Laboratory Results - last 24 hr 07/25/18 07/25/18 07/25/18 12:04 12:04 12:04 WBC 5.8 RBC 5.26 Hgb 16.2 Hct 48.8 MCV 92.7 MCH 30.8 MCHC 33.3 RDW 13.0 Plt Count 206 MPV 8.4 Neut % (Auto) 61.1 Lymph % (Auto) 23.8 [place] % (Auto) 10.6 H Eos % (Auto) 3.6 Baso % (Auto) 0.9 Neut # (Auto) 3.6 Lymph # (Auto) 1.4 [place] # (Auto) 0.6 Eos # (Auto) 0.2 Baso # (Auto) 0.1 PT 11.7 INR 1.1 APTT 29 Sodium 137 Potassium 4.1 Chloride 101 Carbon Dioxide 28 Anion Gap 12 BUN 13 Creatinine 0.8 Est GFR ( Amer) > 60 Est GFR (Non-Af Amer) > 60 Random Glucose 152 H Hemoglobin A1c Calcium 9.6 Total Bilirubin 0.6 AST 76 H D ALT 65 Alkaline Phosphatase 78 Troponin I < 0.0120 Total Protein 8.7 H Albumin 4.8 Globulin 3.9 Albumin/Globulin Ratio 1.2 Triglycerides 206 H Cholesterol 181 LDL Cholesterol Direct 113 HDL Cholesterol 53 Alcohol, Quantitative < 10 Blood Type Antibody Screen 07/25/18 07/25/18 12:04 12:04 WBC RBC Hgb Hct MCV MCH MCHC RDW Plt Count MPV Neut % (Auto) Lymph % (Auto) [place] % (Auto) Eos % (Auto) Baso % (Auto) Neut # (Auto) Lymph # (Auto) [place] # (Auto) Eos # (Auto) Baso # (Auto) PT INR APTT Sodium Potassium Chloride Carbon Dioxide Anion Gap BUN Creatinine Est GFR ( Amer) Est GFR (Non-Af Amer) Random Glucose Hemoglobin A1c 5.9 Calcium Total Bilirubin AST ALT Alkaline Phosphatase Troponin I Total Protein Albumin Globulin Albumin/Globulin Ratio Triglycerides Cholesterol LDL Cholesterol Direct HDL Cholesterol Alcohol, Quantitative Blood Type A POSITIVE Antibody Screen Negative Assessment & Plan - Assessment and Plan (Free Text) Assessment: 63 year old male with PMHx of epilepsy, 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 Plan: CT head: No acute intracranial hemorrhage. Encephalomalacia to right posterior parietal region subjacent to a old craniotomy defect. Suspect residual meningioma along the right lateral margin of the surgical cavity subjacent to the craniotomy defect along its lateral border. CTA head/neck: There is no evidence of occlusion significant stenosis or dissection. Note made of several peripherally enhancing semi lunar shaped extra- axial densities subjacent to the craniotomy defect which may represent residual- recurrent tumor likely meningioma. Follow-up pre and post-contrast MRI of the brain is recommended for further evaluation. -load with Keppra 1500mg IV once -lamictal 200mg once -Continue home meds Keppra 1500mg PO BID, Lamictal 200mg BID (conversion for home med Lamictal XR 400mg QD) -EEG Case discused with Dr. rPasad Coreas, PGY-1 <Dionicio Parham - Last Filed: 07/27/18 16:12> Results - Vital Signs Recent Vital Signs: Last Vital Signs Temp 97.9 F 07/26/18 08:17 Pulse 72 07/26/18 12:37 Resp 20 07/26/18 08:17 BP 157/92 H 07/26/18 08:17 Pulse Ox 98 07/26/18 12:37 - Labs Result Diagrams: 07/25/18 12:04 07/25/18 12:04 Attending/Attestation - Attestation I have personally seen and examined this patient.: Yes I have fully participated in the care of the patient.: Yes I have reviewed all pertinent clinical information: Yes Notes (Text): I agree with the assessment and plan. Consult requested by Dr. Hairston. Likely seizure and post ictal state due to medication non-compliance. Will resume Keppra and Lamictal and follow exam and results. Thank you.
--- NOTE | 2018-07-25 15:20 | CP.PCM.HP ---
History of Present Illness - History of Present Illness History of Present Illness: 63 y/o male,w/PMhx of HTN, hypercholestereloremia, brain mass resection, epilepsy (on Keppra), colon cancer, brought to ER by ambulance for evaluation of left sided weakness vs possible seizure. Per EMS, patient was talking normally upon arrival to his home. EMS notes that patient soon became intermittently non-verbal and he had empty stare into the distance. EMS reports that they noticed patient has mild LUE and LLE weakness. They did note not any signs of trauma. They state that patient normally takes Keppra for seizures. Of note, Code Stroke was called at 11:57 AM in the ER. PT HAD SIMILAR COMPLAINTS IN 2018 WAS ADMITTED WITH NO NEW NEUROLOGICAL FINDINGS Present on Admission - Present on Admission Any Indicators Present on Admission: No Review of Systems - Review of Systems All systems: reviewed and no additional remarkable complaints except ( STATED IN HPI) Past Patient History - Infectious Disease Hx of Infectious Diseases: None - Past Medical History & Family History Past Medical History?: Yes - Past Social History Smoking Status: Never Smoked - CARDIAC Hx Hypercholesterolemia: Yes Hx Hypertension: Yes - PULMONARY Hx Tuberculosis: No - NEUROLOGICAL Hx Seizures: Yes (Last one was 05/01/18) - HEENT Hx HEENT Problems: No - RENAL Hx Chronic Kidney Disease: No - ENDOCRINE/METABOLIC Hx Endocrine Disorders: No - HEMATOLOGICAL/ONCOLOGICAL Hx Human Immunodeficiency Virus (HIV): No - INTEGUMENTARY Hx Dermatological Problems: No - MUSCULOSKELETAL/RHEUMATOLOGICAL Hx Falls: No - GASTROINTESTINAL Hx Gastrointestinal Disorders: Yes Hx Bowel Surgery: Yes (sigmoid colectomy) - GENITOURINARY/GYNECOLOGICAL Hx Sexually Transmitted Disorders: No - PSYCHIATRIC Hx Anxiety: No Hx Substance Use: No - SURGICAL HISTORY Hx Surgeries: Yes Other/Comment: Sigmoid Colectomy - ANESTHESIA Hx Anesthesia: Yes Hx Anesthesia Reactions: No Hx Malignant Hyperthermia: No Meds Allergies/Adverse Reactions: Allergies Allergy/AdvReac Type Severity Reaction Status Date / Time seafood Allergy SHORTNESS Uncoded 01/02/18 16:59 OF BREATH Physical Exam - Constitutional Appears: Well - Head Exam Head Exam: ATRAUMATIC, NORMAL INSPECTION, NORMOCEPHALIC - Eye Exam Eye Exam: EOMI, Normal appearance, PERRL - ENT Exam ENT Exam: Mucous Membranes Moist, Normal Exam - Neck Exam Neck exam: Positive for: Normal Inspection - Respiratory Exam Respiratory Exam: Clear to Auscultation Bilateral, NORMAL BREATHING PATTERN - Cardiovascular Exam Cardiovascular Exam: REGULAR RHYTHM - GI/Abdominal Exam GI & Abdominal Exam: Normal Bowel Sounds, Soft. absent: Tenderness - Extremities Exam Extremities exam: Positive for: normal inspection - Back Exam Back exam: NORMAL INSPECTION - Neurological Exam Neurological exam: Alert, CN II-XII Intact, Oriented x3, Reflexes Normal Results - Vital Signs Recent Vital Signs: Last Vital Signs Temp 98.7 F 07/25/18 12:00 Pulse 61 07/25/18 14:45 Resp 20 07/25/18 14:45 BP 172/101 H 07/25/18 14:45 Pulse Ox 98 07/25/18 14:45 - Labs Result Diagrams: 07/25/18 12:04 07/25/18 12:04 Labs: Laboratory Results - last 24 hr 07/25/18 07/25/18 07/25/18 11:54 12:04 12:04 WBC 5.8 RBC 5.26 Hgb 16.2 Hct 48.8 MCV 92.7 MCH 30.8 MCHC 33.3 RDW 13.0 Plt Count 206 MPV 8.4 Neut % (Auto) 61.1 Lymph % (Auto) 23.8 [place] % (Auto) 10.6 H Eos % (Auto) 3.6 Baso % (Auto) 0.9 Neut # (Auto) 3.6 Lymph # (Auto) 1.4 [place] # (Auto) 0.6 Eos # (Auto) 0.2 Baso # (Auto) 0.1 PT 11.7 INR 1.1 APTT 29 Sodium Potassium Chloride Carbon Dioxide Anion Gap BUN Creatinine Est GFR ( Amer) Est GFR (Non-Af Amer) POC Glucose (mg/dL) 155 H Random Glucose Hemoglobin A1c Calcium Total Bilirubin AST ALT Alkaline Phosphatase Troponin I Total Protein Albumin Globulin Albumin/Globulin Ratio Triglycerides Cholesterol LDL Cholesterol Direct HDL Cholesterol Alcohol, Quantitative Blood Type Antibody Screen 07/25/18 07/25/18 07/25/18 12:04 12:04 12:04 WBC RBC Hgb Hct MCV MCH MCHC RDW Plt Count MPV Neut % (Auto) Lymph % (Auto) [place] % (Auto) Eos % (Auto) Baso % (Auto) Neut # (Auto) Lymph # (Auto) [place] # (Auto) Eos # (Auto) Baso # (Auto) PT INR APTT Sodium 137 Potassium 4.1 Chloride 101 Carbon Dioxide 28 Anion Gap 12 BUN 13 Creatinine 0.8 Est GFR ( Amer) > 60 Est GFR (Non-Af Amer) > 60 POC Glucose (mg/dL) Random Glucose 152 H Hemoglobin A1c 5.9 Calcium 9.6 Total Bilirubin 0.6 AST 76 H D ALT 65 Alkaline Phosphatase 78 Troponin I < 0.0120 Total Protein 8.7 H Albumin 4.8 Globulin 3.9 Albumin/Globulin Ratio 1.2 Triglycerides 206 H Cholesterol 181 LDL Cholesterol Direct 113 HDL Cholesterol 53 Alcohol, Quantitative < 10 Blood Type A POSITIVE Antibody Screen Negative Assessment & Plan (1) Seizure Status: Acute Comment: NEURO EVAL. KEPPRE AND LAMICTAL (2) Meningioma determined by biopsy of brain Status: Acute (3) Hx of resection of meningioma Status: Acute
[2018-07-26 02:31] VITALS: RESP 20
[2018-07-26 08:19] VITALS: BP 157/92; TEMP 97.9
--- NOTE | 2018-07-26 11:37 | CP.PCM.PN ---
Subjective - Date & Time of Evaluation Date of Evaluation: 07/26/18 Time of Evaluation: 10:05 - Subjective Subjective: Progress note for Dr. Parham. Patient seen and examined at bedside. No acute events overnight. Patient states he feels much better and states that he would like to go home. He denies focal weakness, numbness, blurry vision, slurred speech, nausea, vomiting and dizziness. Objective - Vital Signs/Intake and Output Vital Signs (last 24 hours): Temp Pulse Resp BP Pulse Ox 97.9 F 67 20 157/92 H 97 07/26/18 08:17 07/26/18 08:17 07/26/18 08:17 07/26/18 08:17 07/26/18 08:17 - Medications Medications: Current Medications Alprazolam (Xanax) 0.25 mg PO DAILY [facility] Stop: 08/02/18 10:01 Last Admin: 07/26/18 10:36 Dose: 0.25 mg Famotidine (Pepcid) 20 mg PO DAILY [facility] Last Admin: 07/26/18 10:37 Dose: 20 mg Hydralazine HCl (Apresoline) 25 mg PO ONCE ONE Stop: 07/26/18 22:44 Influenza Virus Vaccine (Flucelvax Quad 2381-0486 Syr) 60 mcg IM .ONCE ONE Stop: 07/27/18 10:01 Isosorbide Mononitrate (Imdur Er) 30 mg PO DAILY [facility] Last Admin: 07/26/18 10:36 Dose: 30 mg Lamotrigine (Lamictal) 200 mg PO BID [facility] Last Admin: 07/26/18 10:36 Dose: 200 mg Levetiracetam (Keppra) 1,500 mg PO BID [facility] Last Admin: 07/26/18 10:37 Dose: 1,500 mg Lisinopril (Zestril) 10 mg PO DAILY [facility] Last Admin: 07/26/18 10:37 Dose: 10 mg Pneumococcal Polyvalent Vaccine (Pneumovax 23 Vaccine) 0.5 ml IM .ONCE ONE Stop: 07/27/18 10:01 Rosuvastatin Calcium (Crestor) 5 mg PO HS [facility] - Labs Labs: 07/25/18 12:04 07/25/18 12:04 PT 11.7 SECONDS (9.7-12.2) 07/25/18 12:04 INR 1.1 07/25/18 12:04 APTT 29 SECONDS (21-34) 07/25/18 12:04 - Constitutional Appears: Non-toxic, No Acute Distress - Head Exam Head Exam: ATRAUMATIC Additional comments: Well healed surgical scar to scalp - Eye Exam Eye Exam: EOMI, Normal appearance, PERRL - ENT Exam ENT Exam: Mucous Membranes Moist - Neck Exam Neck Exam: Normal Inspection - Respiratory Exam Respiratory Exam: NORMAL BREATHING PATTERN. absent: Respiratory Distress - Cardiovascular Exam Cardiovascular Exam: REGULAR RHYTHM, +S1, +S2 - GI/Abdominal Exam GI & Abdominal Exam: Soft, Normal Bowel Sounds. absent: Tenderness Additional comments: well healed R abdominal surgical scar from previous colon malignancy resection. - Extremities Exam Extremities Exam: Full ROM, Normal Inspection - Neurological Exam Neurological Exam: Alert, Awake, CN II-XII Intact, Oriented x3 Neuro motor strength exam: Left Upper Extremity: 5, Right Upper Extremity: 5, Left Lower Extremity: 5, Right Lower Extremity: 5 Additional comments: No dysdiadochokinesis - Psychiatric Exam Psychiatric exam: Normal Affect, Normal Mood - Skin Skin Exam: Dry, Normal Color, Warm Assessment and Plan - Assessment and Plan (Free Text) Assessment: 63 year old M with hx of epilepsy admitted for seizure vs CVA. Plan: CT head: No acute intracranial hemorrhage. Encephalomalacia to right posterior parietal region subjacent to a old craniotomy defect. Suspect residual meningioma along the right lateral margin of the surgical cavity subjacent to the craniotomy defect along its lateral border. CTA head/neck: There is no evidence of occlusion significant stenosis or dissection. Note made of several peripherally enhancing semi lunar shaped extra- axial densities subjacent to the craniotomy defect which may represent residual- recurrent tumor likely meningioma. Follow-up pre and post-contrast MRI of the brain is recommended for further evaluation. -Patient AAOx3 without neurological deficits. Symptoms explained by seizure and have now resolved. -Patient is stable for discharge from neurological standpoint. Discussed with Dr. Parham. Melania Coreas, PGY-1
--- NOTE | 2018-07-26 12:13 | CP.PCM.PN ---
Subjective - Date & Time of Evaluation Date of Evaluation: 07/26/18 Time of Evaluation: 12:12 - Subjective Subjective: NO FURTHER COMPLAINTS AND EVENTS P/E AND VS ARE UNCHANGED AWAITING NEURO W/U Objective - Vital Signs/Intake and Output Vital Signs (last 24 hours): Temp Pulse Resp BP Pulse Ox 97.9 F 71 20 157/92 H 97 07/26/18 08:17 07/26/18 12:01 07/26/18 08:17 07/26/18 08:17 07/26/18 08:17 - Medications Medications: Current Medications Alprazolam (Xanax) 0.25 mg PO DAILY [facility] Stop: 08/02/18 10:01 Last Admin: 07/26/18 10:36 Dose: 0.25 mg Famotidine (Pepcid) 20 mg PO DAILY [facility] Last Admin: 07/26/18 10:37 Dose: 20 mg Hydralazine HCl (Apresoline) 25 mg PO ONCE ONE Stop: 07/26/18 22:44 Influenza Virus Vaccine (Flucelvax Quad 1016-3961 Syr) 60 mcg IM .ONCE ONE Stop: 07/27/18 10:01 Isosorbide Mononitrate (Imdur Er) 30 mg PO DAILY [facility] Last Admin: 07/26/18 10:36 Dose: 30 mg Lamotrigine (Lamictal) 200 mg PO BID [facility] Last Admin: 07/26/18 10:36 Dose: 200 mg Levetiracetam (Keppra) 1,500 mg PO BID [facility] Last Admin: 07/26/18 10:37 Dose: 1,500 mg Lisinopril (Zestril) 10 mg PO DAILY [facility] Last Admin: 07/26/18 10:37 Dose: 10 mg Pneumococcal Polyvalent Vaccine (Pneumovax 23 Vaccine) 0.5 ml IM .ONCE ONE Stop: 07/27/18 10:01 Rosuvastatin Calcium (Crestor) 5 mg PO HS [facility] - Labs Labs: 07/25/18 12:04 07/25/18 12:04 PT 11.7 SECONDS (9.7-12.2) 07/25/18 12:04 INR 1.1 07/25/18 12:04 APTT 29 SECONDS (21-34) 07/25/18 12:04 Assessment and Plan (1) Seizure Status: Acute (2) Meningioma determined by biopsy of brain Status: Acute (3) Hx of resection of meningioma Status: Acute
--- NOTE | 2018-07-26 12:41 | CARD ---
APPROVED REPORT Date of service: 07/25/2018 EKG Measurement Heart [id number] <Conclusion> Sinus bradycardia Voltage criteria for left ventricular hypertrophy Abnormal ECG
[2018-07-26 12:50] VITALS: PULSE 72; O2SAT 98
--- NOTE | 2018-07-26 14:09 | CARD ---
APPROVED REPORT Date of service: 07/26/2018 EXAM: Two-dimensional and M-mode echocardiogram with Doppler and color Doppler. Other Information Quality : GoodRhythm : INDICATION CVA/TIA CA OF COLON RISK FACTORS Hypertension Hyperlipidemia 2D DIMENSIONS IVSd1.1 (0.7-1.1cm)LVDd5.0 (3.9-5.9cm) PWd1.1 (0.7-1.1cm)LA [id number] (18-58mL) LVDs3.5 (2.5-4.0cm)FS (%) 29.8 % LVEF (%)56.6 (>50%)LVEF (Bui's)60.72 % M-Mode DIMENSIONS Left Atrium (MM)3.79 (2.5-4.0cm)IVSd1.04 (0.7-1.1cm) Aortic Root3.79 (2.2-3.7cm)LVDd5.38 (4.0-5.6cm) Aortic Cusp Exc.2.26 (1.5-2.0cm)PWd0.99 (0.7-1.1cm) FS (%) 34 %LVDs3.54 (2.0-3.8cm) LVEF (%)63 (>50%) Mitral Valve MV E Fynxfoym67.7cm/sMV A Scevseab88.7cm/sE/A ratio0.9 TDI Lateral E' Peak V8.03cm/sMedial E' Peak V4.87cm/sE/Lateral E'6.3 E/Medial E'10.4 Tricuspid Valve TR Peak [id number]/sTR Peak Gr.[id number] LEFT VENTRICLE The left ventricle is normal size. There is normal left ventricular wall thickness. The left ventricular function is normal. The left ventricular ejection fraction is within the normal range. No regional wall motion abnormalities noted. The left ventricular diastolic function is normal. No left ventricle thrombus noted on this study. There is no ventricular septal defect visualized. There is no left ventricular aneurysm. There is no mass noted in the left ventricle. RIGHT VENTRICLE The right ventricle is normal size. There is normal right ventricular wall thickness. The right ventricular systolic function is normal. ATRIA The left atrium vol. is increased The right atrium size is normal. The interatrial septum is intact with no evidence for an atrial septal defect. AORTIC VALVE The aortic valve is normal in structure and function. No aortic regurgitation is present. There is no aortic valvular stenosis. There is no aortic valvular vegetation. MITRAL VALVE The mitral valve is normal in structure and function. There is no evidence of mitral valve prolapse. There is no mitral valve stenosis. There is no mitral valve regurgitation noted. TRICUSPID VALVE The tricuspid valve is normal in structure and function. There is no tricuspid valve regurgitation noted. There is no tricuspid valve prolapse or vegetation. There is no tricuspid valve stenosis. PULMONIC VALVE The pulmonary valve is normal in structure and function. There is no pulmonic valvular regurgitation. There is no pulmonic valvular stenosis. GREAT VESSELS The aortic root is normal in size. The ascending aorta is normal in size. The pulmonary artery is normal. The IVC is normal in size and collapses >50% with inspiration. PERICARDIAL EFFUSION The pericardium appears normal. There is no pleural effusion. <Conclusion> The left ventricular function is normal. The left ventricular ejection fraction is within the normal range. No regional wall motion abnormalities noted. The left atrium vol. is increased
[2018-07-27] MEDS ORDERED: Influenza Vaccine 60 mcg/0.5 mL SYR (4YR UP) IM ONE (10:00)
[2018-07-27] MEDS ORDERED: Pneumococcal 23-Valent Vaccine IM ONE (10:00)
== END 2018-07-26 15:40 | disposition left against medical advice (07) | DRG 101 ==
LOC: C.ER 11:56 → C.6T 15:00
PROVIDERS: ADMIT Internal Medicine Cardiovascular Disease; ATTEND Internal Medicine Cardiovascular Disease
DX: G40.909 Epilepsy, unspecified, not intractable, without status epilepticus (principal); G93.89 Other specified disorders of brain; I10 Essential (primary) hypertension; E78.5 Hyperlipidemia, unspecified; R29.810 Facial weakness; Z85.038 Personal history of other malignant neoplasm of large intestine; Z86.011 Personal history of benign neoplasm of the brain

== ENCOUNTER 2018-08-02 13:16 | Emergency (ER) | payer MEDICARE, BC ==
[2018-08-02 13:16] VITALS: BMI 33.5
[2018-08-02 13:38] VITALS: O2SAT 95
--- NOTE | 2018-08-02 14:56 | C.PDOC ---
History Of Present Illness 63 y/o male, w/PMHx of HTN, HLD, brain meningioma s/p resection, epilepsy (on Keppra), colon cancer, comes in for evaluation constipation developed for past few days. Pt admits, " tuyet to go every day, but need to strain hard'. DEnies fever, chills, abd. pain, V/D, change in appetite, melena, hematoschezia, back pian, UTI sx. Ambulatory in ED with stable gait, not in any apparent distress. Time Seen by Provider: 08/02/18 14:39 Chief Complaint (Nursing): GI Problem History Per: Patient Past Medical History Reviewed: Historical Data, Nursing Documentation, Vital Signs Vital Signs: Last Vital Signs Temp 98.3 F 08/02/18 13:38 Pulse 63 08/02/18 13:38 Resp 18 08/02/18 13:38 BP 176/105 H 08/02/18 13:38 Pulse Ox 95 08/02/18 13:38 - Medical History PMH: HTN, Hypercholesterolemia, Hyperlipidemia, Seizures Denies: Anxiety, Diabetes, Hepatitis, HIV, Chronic Kidney Disease, Sexually Transmitted Disease - [facility] Procedures GROUP PSYCHOTHERAPY (05/04/18) INDIVIDUAL PSYCHOTHERAPY, COGNITIVE-BEHAVIORAL (05/04/18) INDIVIDUAL PSYCHOTHERAPY, SUPPORTIVE (05/04/18) Family History: States: Unknown Family Hx - Social History Hx Tobacco Use: No Hx Alcohol Use: Yes Hx Substance Use: No - Immunization History Hx Tetanus Toxoid Vaccination: No Hx Influenza Vaccination: No Hx Pneumococcal Vaccination: No Review Of Systems Except As Marked, All Systems Reviewed And Found Negative. Constitutional: Negative for: Fever, Chills Gastrointestinal: Positive for: Constipation. Negative for: Nausea, Vomiting, Abdominal Pain, Diarrhea, Melena, Hematochezia, Hematemesis, Rectal Pain Musculoskeletal: Negative for: Back Pain Physical Exam - Physical Exam Appears: Well, Non-toxic, No Acute Distress Skin: Normal Color, Warm Head: Normacephalic Throat: No Drooling Gastrointestinal/Abdominal: Soft, No Tenderness, No Distention, No Guarding, No Rebound Back: No CVA Tenderness Extremity: Normal ROM ED Course And Treatment O2 Sat by Pulse Oximetry: 95 Pulse Ox Interpretation: Normal - Other Rad Obstructive serial X-Ray: Read By Radiologist Interpretation: IMPRESSION: No focal consolidation. Moderate constipation. Elevation/eventration of the right hemidiaphragm. Right upper quadrant surgical clips. Progress Note: Pt was OBS in ED for 2 hrs and remained tsable. After ED tx, pt was able to move bowel #2, reports mod improvement in sx. Afebrile, hemodynamicaly stable. NOn-toxic. Abd: benign, (-) guarding, (-) rebound, (-) localized tenderness. Neuorlogicaly intact. KAE noted high, pt admits ": did not take my BP medication today", denies any associated sx at present time. Pt advised to take his meds as prescribed. DIet adjustment for constipation. Ref. to F/U with PMD in 1-2 days for re-eavl. Return if any worsening or changes. Pt understand , stable for discharge now. Disposition Counseled Patient/Family Regarding: Studies Performed, Diagnosis, Need For Followup, Rx Given - Disposition Referrals: Allan Mccoy MD [Staff Provider] - Disposition: HOME/ ROUTINE Disposition Time: 16:10 Condition: STABLE Additional Instructions: Encourage fluids Take Blood pressure medication as prescribed Diet adjustment, fiber-rich diet Follow up with PMD in 2-3 days for re-evaluation Return to ED if any worsening or new changes Prescriptions: Docusate [Colace] 100 mg PO DAILY #20 cap Polyethylene Glycol 3350 [Miralax] 17 gm PO ONCE #1 bottle Instructions: High Blood Pressure in Adults, Constipation, Adult (DC) Forms: [employer] (Chinese) - Clinical Impression Clinical Impression: Constipation, Hypertension
[2018-08-02 15:23] VITALS: TEMP 98.2
--- NOTE | 2018-08-02 16:50 | RAD ---
Date of service: 08/02/2018 PROCEDURE: Radiographs of the chest and abdomen (obstructive series) HISTORY: constipation COMPARISON: Chest x-ray performed 07/25/18 TECHNIQUE: AP radiograph of the chest, with upright and supine radiographs of the abdomen. FINDINGS: CHEST: Heart size appears within normal limits. No focal consolidation, significant pleural effusion, or definite pneumothorax. Please note that chest x-ray has limited sensitivity for the detection of pulmonary masses. ABDOMEN AND PELVIS: Elevation/eventration of the right hemidiaphragm. Right upper quadrant surgical clips. Moderate constipation. Nonobstructive bowel gas pattern. No definite free air. Degenerative changes. IMPRESSION: No focal consolidation. Moderate constipation. Elevation/eventration of the right hemidiaphragm. Right upper quadrant surgical clips.
[2018-08-02 17:37] VITALS: BP 156/70; PULSE 60; RESP 20
== END 2018-08-02 17:37 | disposition home or self-care (01) ==
LOC: C.ER 13:16
DX: K59.00 Constipation, unspecified (principal); I10 Essential (primary) hypertension; E78.00 Pure hypercholesterolemia, unspecified; E78.5 Hyperlipidemia, unspecified